=== PATIENT | male | born 1940 | race Caucasian/White ===

== ENCOUNTER → 2016-09-08 | Outpatient (CLI) | payer MEDICARE, OTHER ==
[~2016-09-08] VITALS: Ht 165.1 cm; Wt 82.8 kg
[~2016-09-08] MED LIST: /ADVA50050 IN; /TAMS4CA OR; /TIOT18INH INH; ALEVE PO; ALLO300T OR; ASPI1TAB PO; ASPI325T OR; ASPI81TA85 PO; BIMA01SOL OU; CEFD1CAP8 PO; CENTRUM SILVER PO; COMBAER6 INH; COMBVENT INH; CONDROITIN PO; FERR325T3 PO; FIBE625T PO; FIBER CON PO; FISH120012 PO; FISH1400 PO; FLOM5CAP PO; GLUC500T3 OR; GLUC750T18 PO; GLUC750T22 PO; GLUCTAB6 PO; LIDOCAINE 2% INJ 100 MG/5 ML SDV (FOR ANES.) As Ordered ONE; LIPI10TA OR; LIPI10TA PO; LOCO0.1C TOP; MAGN250T3 PO; MELO15TA3 PO; MELO15TA4 PO; NASA1SPR; NASONEX; NS 1,000 ML IV SCH; OMEP20TA PO; OPTI400C PO; PROPOFOL 200 MG/20 ML VIAL As Ordered ONE; SPIR1CAP INH; SYMB16INH INH; TAMS0.4C2 PO; TYLE325T5 PO; VITMTA PO; ZYLO300T4 PO; [UNRECOGNIZED DRUG - OTHER] TOP
--- NOTE | 2016-09-08 07:43 | ROOR ---
Patient Name: Evan Villar Procedure Date: 09/08/2016 7:30 AM Date of : 1940 Age: 76 Room: [facility] Gender: Male Note Status: Finalized Procedure: Upper GI endoscopy Indications: Gastrointestinal bleeding of unknown origin Providers: Horace Osborne MD Referring MD: Jose F Kearney MD Requesting Provider: Medicines: Monitored Anesthesia Care Complications: No immediate complications. Procedure: Pre-Anesthesia Assessment: - The heart rate, respiratory rate, oxygen saturations, blood pressure, adequacy of pulmonary ventilation, and response to care were monitored throughout the procedure. The Endoscope was introduced through the mouth, and advanced to the second part of duodenum. The upper GI endoscopy was accomplished without difficulty. The patient tolerated the procedure well. Findings: The Z-line was variable and was found 39 cm from the incisors. A medium-sized hiatal hernia was present. No other significant abnormalities were identified in a careful examination of the stomach. The exam of the duodenum was otherwise normal. Impression: - Z-line variable, 39 cm from the incisors. - Medium-sized hiatal hernia. - No specimens collected. - The examination was otherwise normal. Recommendation: - Patient has a contact number available for emergencies. The signs and symptoms of potential delayed complications were discussed with the patient. Return to normal activities tomorrow. Written discharge instructions were provided to the patient. - High fiber diet. - Discharge patient to home. - Continue present medications. - Follow an antireflux regimen. - Return to referring physician. - The findings and recommendations were discussed with the patient's family. Horace Osborne MD Horace Osborne MD 09/08/2016 7:42:45 AM This report has been signed electronically. Number of Addenda: 0 Note Initiated On: 09/08/2016 7:30 AM Estimated Blood Loss: Estimated blood loss: none.
--- NOTE | 2016-09-08 08:10 | ROOR ---
Patient Name: Evan Villar Procedure Date: 09/08/2016 7:31 AM Date of : 1940 Age: 76 Room: [facility] Gender: Male Note Status: Finalized Procedure: Colonoscopy to Cecum + Cold Snare Polypectomy Indications: Rectal bleeding Providers: Horace Osborne MD Referring MD: Jose F Kearney MD Requesting Provider: Medicines: Monitored Anesthesia Care Complications: No immediate complications. Procedure: Pre-Anesthesia Assessment: - The heart rate, respiratory rate, oxygen saturations, blood pressure, adequacy of pulmonary ventilation, and response to care were monitored throughout the procedure. The Colonoscope was introduced through the anus and advanced to the cecum, identified by appendiceal orifice and ileocecal valve. The colonoscopy was performed without difficulty. The patient tolerated the procedure well. The quality of the bowel preparation was good. Findings: The perianal and digital rectal examinations were normal. Non-bleeding internal hemorrhoids were found during retroflexion. The hemorrhoids were small and Grade I (internal hemorrhoids that do not prolapse). Multiple small and large-mouthed diverticula were found in the recto-sigmoid colon, sigmoid colon and descending colon. A large polyp was found in the distal ascending colon. The polyp was sessile. The polyp was removed with a cold snare. Polyp resection was incomplete. The resected tissue was retrieved. The exam was otherwise without abnormality on direct and retroflexion views. Impression: - Non-bleeding internal hemorrhoids. - Diverticulosis in the recto-sigmoid colon, in the sigmoid colon and in the descending colon. - One large polyp in the distal ascending colon, removed with a cold snare. Incomplete resection. Resected tissue retrieved. - The examination was otherwise normal on direct and retroflexion views. - The exam was otherwise normal to the cecum. Recommendation: - Patient has a contact number available for emergencies. The signs and symptoms of potential delayed complications were discussed with the patient. Return to normal activities tomorrow. Written discharge instructions were provided to the patient. - High fiber diet. - Discharge patient to home. - Continue present medications. - Await pathology results. - Telephone GI clinic for pathology results in 1 week. - Repeat colonoscopy for surveillance based on pathology results. - Return to referring physician. - The findings and recommendations were discussed with the patient's family. Horace Osborne MD Horace Osborne MD 09/08/2016 8:09:29 AM This report has been signed electronically. Number of Addenda: 0 Note Initiated On: 09/08/2016 7:31 AM Estimated Blood Loss: Estimated blood loss: none.
[2016-09-08 08:30] VITALS: BP 152/91
== END | disposition home or self-care (01) ==
LOC: M OPP 06:34
PROVIDERS: ATTEND Internal Medicine Gastroenterology
DX: K62.5 Hemorrhage of anus and rectum (principal); D12.2 Benign neoplasm of ascending colon; K64.0 First degree hemorrhoids; K57.30 Diverticulosis of large intestine without perforation or abscess without bleeding; K22.8 Other specified diseases of esophagus; K44.9 Diaphragmatic hernia without obstruction or gangrene; I25.10 Atherosclerotic heart disease of native coronary artery without angina pectoris; I10 Essential (primary) hypertension; E78.5 Hyperlipidemia, unspecified; I73.9 Peripheral vascular disease, unspecified; Z87.19 Personal history of other diseases of the digestive system; Z86.010 Personal history of colon polyps; R12 Heartburn; D64.9 Anemia, unspecified; D45 Polycythemia vera; M19.90 Unspecified osteoarthritis, unspecified site; M54.9 Dorsalgia, unspecified; J44.9 Chronic obstructive pulmonary disease, unspecified; R06.83 Snoring; Z87.442 Personal history of urinary calculi; R06.02 Shortness of breath; N40.1 Benign prostatic hyperplasia with lower urinary tract symptoms; Z95.5 Presence of coronary angioplasty implant and graft; Z79.82 Long term (current) use of aspirin; Z79.899 Other long term (current) drug therapy; Z83.71 Family history of colonic polyps

== ENCOUNTER → 2016-09-09 | Outpatient (REF) | payer MEDICARE, OTHER ==
[~2016-09-09] MED LIST changes: -LIDOCAINE 2% INJ 100 MG/5 ML SDV (FOR ANES.) As Ordered ONE; -NS 1,000 ML IV SCH; -PROPOFOL 200 MG/20 ML VIAL As Ordered ONE
[2016-09-09 21:09] LABS: MEAN CORPUSCULAR HEMOGLOBIN 24.7 pg (27.0-33.0); MEAN CORPUSCULAR HGB CONC 30.1 g/dl (32.0-36.5); MEAN CORPUSCULAR VOLUME 82.3 fl (80.0-96.0); RED CELL DISTRIBUTION WIDTH 17.5 % (11.5-14.5); WHITE BLOOD COUNT 9.2 K/mm3 (4.0-10.0)
[2016-09-09 21:37] LABS: ALBUMIN 3.5 GM/DL (3.2-5.2); BILIRUBIN,TOTAL 0.6 MG/DL (0.2-1.0); CALCIUM LEVEL 9.4 MG/DL (8.8-10.2); CREATININE FOR GFR 1.3 MG/DL (0.70-1.30); POTASSIUM SERUM 4.3 MEQ/L (3.5-5.1)
== END ==
LOC: M SFHCPLAZ 13:55
PROVIDERS: ATTEND Internal Medicine
DX: D50.9 Iron deficiency anemia, unspecified (principal); J44.9 Chronic obstructive pulmonary disease, unspecified

== ENCOUNTER 2016-10-17 18:18 | Inpatient (IN) | payer MEDICARE, OTHER ==
[~2016-10-17] VITALS: Ht 165.1 cm; Wt 91.0 kg
[2016-10-17] MEDS ORDERED: PRIL20CA9 PO (18:50)
[2016-10-17] MEDS ORDERED: LOCO0.1C EX (18:50)
[2016-10-17] MEDS ORDERED: SYMB16INH INH (18:50)
[2016-10-17] MEDS ORDERED: MORPHINE 4 MG/ML 1ML SYRINGE IV ONE ×2 (20:00→23:00)
[2016-10-17 20:11] LABS: CALCIUM LEVEL 8.7 MG/DL (8.8-10.2); CREATININE FOR GFR 1.46 MG/DL (0.70-1.30); GLOMERULAR FILTRATION RATE 49.8 (>42); POTASSIUM SERUM 4.6 MEQ/L (3.5-5.1)
[2016-10-17] MEDS ORDERED: NS 1,000 ML IV SCH (20:15)
[2016-10-17 20:16] LABS: BASO % 0.4 % (0.0-1.0); EOS % 0.5 % (0.0-3.0); LARGE UNSTAINED CELL # 0.1 K/mm3 (0.0-0.4); LARGE UNSTAINED CELL % 1.1 % (0.0-4.0); LYMPH # 0.5 K/mm3 (1.5-4.5); LYMPH % 6.2 % (24.0-44.0); MEAN CORPUSCULAR HEMOGLOBIN 26.4 pg (27.0-33.0); MEAN CORPUSCULAR HGB CONC 30.8 g/dl (32.0-36.5); MEAN CORPUSCULAR VOLUME 85.7 fl (80.0-96.0); MONO # 0.4 K/mm3 (0.0-0.8); MONO % 4.5 % (0.0-5.0); NEUTROPHILS # 7.5 K/mm3 (1.8-7.7); NEUTROPHILS % 87.4 % (36.0-66.0); PLATELET COUNT, AUTOMATED 200 k/mm3 (150-450); RED CELL DISTRIBUTION WIDTH 18.1 % (11.5-14.5); WHITE BLOOD COUNT 8.6 K/mm3 (4.0-10.0)
[2016-10-17] MEDS ORDERED: PERCOCET 5MG/325MG TAB PO ONE (21:00)
--- NOTE | 2016-10-17 21:20 | REPUSA ---
CT of the abdomen and pelvis without contrast Clinical statement: hematuria. Technique: Multiple axial CT images were obtained from the base of the lungs to the floor of the pelv is utilizing 5 mm axial slices without administration of contrast. Coronal and sagittal reconstructio ns were also obtained. Comparison: 04/13/2016. Findings: Chest: The visualized lung bases are clear here. Mild emphysematous changes are seen in the right low er lobe. Abdomen: The kidneys are normal in size bilaterally. There is a simple cyst in the inferior posterior left kidney measuring 2.3 x 2.3 cm. Mild Left-sided hydronephrosis is noted, with at least two kidn ey stones in the left renal pelvis measuring up to 5 mm. Tiny nonobstructing stones are seen in the r ight renal collecting system. A tiny 2 mm gallstone is noted. No pericholecystic inflammatory changes are seen. The liver, spleen, pancreas, and adrenal glands are unremarkable. IVC filter is in place. Diffuse atherosclerotic calcifications are seen in the aorta. The aorta demonstrates an infrarenal an eurysm measuring 3.1 x 3.4 cm. There is no abdominal lymphadenopathy or ascites. Pelvis: The bowel is unremarkable, with no obstructive or inflammatory changes. Extensive sigmoid div erticulosis is noted, without evidence of diverticulitis. The urinary bladder is within normal limits . There is no pelvic lymphadenopathy or ascites. The prostate is enlarged, measuring 4.8 x 4.9 cm. Bones: There are no suspicious osseous abnormalities seen. Moderately severe multilevel degenerative disc disease is seen from L1 through L5. Impression: 1. Mild left-sided hydronephrosis with several stones in the left renal pelvis measuring up to 5 mm i n diameter These are not significantly changed since the prior study. Nonobstructing right renal neph rolithiasis is also noted.Simple left renal cyst. 2. Cholelithiasis, without evidence of acute cholecystitis. 3. Infrarenal abdominal aortic aneurysm measuring up to 3.4 cm. Diffuse atherosclerotic changes. 4. No obstructive or inflammatory bowel changes. Severe diffuse sigmoid diverticulosis. 5. Enlarged prostate. 6. Moderate lumbar spondylosis.
[2016-10-17] MEDS ORDERED: cefTRIAXone SOD 1 GM in D5W MINI-BAG PLUS 50 ML IV ONE (23:45)
[2016-10-18] MEDS ORDERED: ACETAMINOPHEN TAB 650MG DOSE (2X325MG) PO PRN (00:15)
[2016-10-18] MEDS ORDERED: ONDANSETRON 4MG/2ML VIAL (J2405) IV PRN (00:15)
[2016-10-18] MEDS ORDERED: GLUC1CAP9 PO (00:17)
[2016-10-18] MEDS ORDERED: FISH100049 PO (00:17)
[2016-10-18] MEDS ORDERED: MAGN1TAB25 PO (00:19)
[2016-10-18] MEDS ORDERED: OMEP40CA2 PO (00:19)
[2016-10-18] MEDS ORDERED: ONDANSETRON 4MG/2ML VIAL (J2405) IV ONE (00:45)
[2016-10-18] MEDS ORDERED: MORPHINE 2 MG/ML 1ML SYRINGE IV ONE (01:00)
[2016-10-18] MEDS: NS 1,000 ML IV SCH ×2 (01:04→10:04)
[2016-10-18] MEDS ORDERED: IPRATROPIUM 0.5MG/ALBUTEROL 2.5MG INH SOL UD 3ML (DUONEB)(J7620) NEB PRN (01:15)
[2016-10-18 01:45] VITALS: BP 170/89
[2016-10-18] MEDS: TAMSULOSIN 0.4 MG CAP PO SCH ×2 (01:54→21:32)
[2016-10-18] MEDS: OMEGA-3 1050MG CAPSULE PO SCH ×2 (01:55→21:32)
[2016-10-18] MEDS: ATORVASTATIN 10 MG TAB PO SCH ×2 (01:55→21:32)
[2016-10-18] MEDS: MORPHINE 2 MG/ML 1ML SYRINGE IV PRN ×2 (04:32→11:09)
[2016-10-18 05:54] LABS: CALCIUM LEVEL 8.6 MG/DL (8.8-10.2); CREATININE FOR GFR 1.31 MG/DL (0.70-1.30); GLOMERULAR FILTRATION RATE 56.5 (>42); POTASSIUM SERUM 4.8 MEQ/L (3.5-5.1)
[2016-10-18 06:00] VITALS: BP 169/79
[2016-10-18 06:15] VITALS: BP 132/64
[2016-10-18] MEDS ORDERED: amLODIPine 5 MG TAB PO ONE (06:15)
[2016-10-18 06:50] VITALS: BP 128/50
[2016-10-18] MEDS: SYMBICORT 160/4.5MCG INHALER 6GM INH SCH ×2 (08:03→19:30)
[2016-10-18] MEDS: TIOTROPIUM INHALER/CAPSULE (SPIRIVA) INH SCH (08:03)
--- NOTE | 2016-10-18 08:11 | HPE ---
DATE OF ADMISSION: 10/18/2016 PRIMARY CARE PROVIDER: Dr. Jose F Kearney. INPATIENT HOSPITALIST ATTENDING: Dr. Darron Rich. CHIEF COMPLAINT: Back pain. 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 Osborne. He presents to the emergency room with acute onset of bilateral lower back pain. While the patient was walking up three steps at home, he suddenly had severe sharp pain, bilateral lower back radiating down to his thigh. He has been experiencing some urgency with no frequency. No dysuria. No fever or chills. He noted some hematuria today. Describes it as had prior kidney stones. No changes in appetite, weight gain, weight loss, chest pain or pressure, tightness, palpitations, lightheadedness, near syncope. Denies any nausea, vomiting, diarrhea or constipations. The patient felt nauseated on arrival to the emergency room, however. He had taken one hydrocodone from previous admissions with no relief prompting him to present to the emergency room. No difficulty with walking. No weakness of the lower extremities. Hospitalist service was called for admission when the patient was found to have hematuria, left-sided hydronephrosis on CT with nonobstructing kidney stone and per urology , recommendations were to start an IV of ceftriaxone. PAST MEDICAL HISTORY: Diverticular bleed. Chronic left hydronephrosis with recurrent kidney stones. History of pulmonary embolus, deep venous thrombosis. IVC filter. History of COPD. Chronic back pain. Glaucoma. Right lower extremity vascular bypass surgery. Retinal detachment. Cataracts. PAST SURGICAL HISTORY: [place] filter Arterioplasty right leg. Appendectomy. Umbilical hernia repair. Multiple colonoscopies and endoscopies. HOME MEDICATIONS: - Combivent two puffs four times daily - allopurinol 300 mg daily - aspirin 81 mg nightly - Lipitor 10 mg nightly - Lumigan one drop every evening - Symbicort two puffs twice a day - Fibracol 625 daily - ferrous sulfate 325 mg three times weekly - fish oil one capsule nightly - glucosamine chondroitan one tablet twice a day - hydrocortisone butyrate one dose topically - magnesium oxide 250 nightly -meloxicam 15 mg daily - Nasacort two sprays daily -omeprazole 40 mg daily - Flomax 0.4 nightly - Spiriva inhaled daily The patient had taken hydrocodone acetaminophen 5/500 from previous prescription. SOCIAL HISTORY: Smoker greater than 40 years, quit many months ago. A few drinks on a weekly basis. Drinks a mixed drink and wine. No recreational drug use. The patient is retired. REVIEW OF SYSTEMS: 12-point system negative aside from positive findings in the history of present illness. PHYSICAL EXAMINATION: VITAL SIGNS: Temperature 97.5, pulse 85, respiratory rate 20, blood pressure 140/85, 96% on room air. GENERAL: The patient is awake, alert, oriented times three answering questions appropriately. No facial asymmetry, jaundice or icterus. HEENT: Pupils are round reactive to light and accommodation. Extraocular muscles intact. Moist mucous membranes. cervical lymphadenopathy, thyromegaly or jugular venous distentions. LUNGS: Lungs are clear to auscultation. No wheezing rales or rhonchi. HEART: S1, S2, sinus rhythm. No murmurs, rubs or gallops. ABDOMEN: Obese, soft, nontender, nondistended. Positive bowel sounds times four quadrants. The patient has an obese abdomen. Positive CVA tenderness on the left. EXTREMITIES: No pitting edema, cyanosis. SKIN: [place] color and warm to touch. NEURO: Negative straight-leg raise testing. No weakness. Motor function is 5/5 times four extremities. Gait was not tested. White count 8.6, hemoglobin 15, hematocrit 49, platelet count 200, 87% neutrophils. Sodium 140, potassium 4.6, chloride 107, bicarbonate 27, BUN 24, creatinine 1.46, glucose 170, calcium 8.7. Baseline creatinine is 0.86 to 1.30. Microbiology: Blood culture obtained pending. Urine culture pending. Urinalysis: Turbid appearance, 2+ protein, trace ketones, negative nitrates, 1+ leukocyte esterase, too numerous to count WBC, negative bacteria. CT abdomen and pelvis: Visualized lung bases are clear. Mild emphysema in the right lobe. Simple cyst inferior posterior left kidney measuring 2.3 x 2.3 cm. Mild left hydronephrosis. At least two kidney stones, left renal pelvis measuring up to 5 mm. Tiny nonobstructing stones in the right renal collecting system. Tiny 2 mm gallstone. No pericholecystic inflammatory changes. Liver, spleen, pancreas and adrenals are unremarkable. IVC filter is in place. Diffuse atherosclerotic calcifications in the aorta. Aorta demonstrates infrarenal aneurysm measuring 3.1 x 3.4 cm. No abdominal lymphadenopathy or ascites. The pelvis is unremarkable. No obstructive or inflammatory changes. Extensive sigmoid diverticulosis is noted without evidence of diverticulitis. Urinary bladder is within normal limits. No pelvic lymphadenopathy or ascites. Prostate is enlarged measuring 4.8 x 4.9 cm. No suspicious osseous abnormalities. Moderately severe degenerative disc disease from L1 to L5. ASSESSMENT/PLAN: This is a 76-year-old male, previous smoker with a 3.4 cm infrarenal abdominal aortic aneurysm, mild left-sided hydronephrosis with chronic recurrent kidney stones, diverticular bleed, pulmonary embolism, deep venous thrombosis. IVC filter, COPD, popliteal aneurysm of the right knee retinal detachment, cataracts, appendectomy, umbilical hernia repair, multiple colonoscopies and endoscopies, arterioplasty of the right leg who presents to the emergency room with acute onset of bilateral lower quadrant back pain. He was found to have nonobstructing kidney stones, left hydronephrosis, hematuria with abnormal urinalysis. The patient has severe degenerative disc disease of the lumbar spine noted on CT with negative sciatica. The patient will be admitted as an inpatient for the following issues: 1. Left hydronephrosis with acute kidney injury. No obstructive stone at this time. Urology has been consulted. The patient will be given intravenous fluids, pain medications. Hold anticoagulation such as aspirin. Deep venous thrombosis prophylaxis with compression stockings. IV ceftriaxone for now. Await urine culture and tailor antibiotics according. Avoid nephrotoxins. Renally dose all medications and trial of IV fluids. Continue with allopurinol for history of gout. Avoid NSAIDs. 2. Lumbar disc disease secondary to degenerative disc most likely from osteoarthritis. Percocet as needed. IV morphine. Bowel regimen with Senokot. 3. History of benign prostatic hypertrophy: Continue on Flomax. 4. History of chronic obstructive pulmonary disease: Prior history of 40 years of smoking. Continue on Symbicort, Spiriva. Nebulizers as needed. No active wheezing. 5. Reflux disease: Continue on Prilosec. 6. Deep venous thrombosis prophylaxis: The patient has an IVC filter with gross hematuria, therefore, will provide compression stockings. The patient will be assigned to Dr. Darron Rich at 7:00 a.m. on 10/18/2016. [facility]ITAL[facility]
[2016-10-18] MEDS: cefTRIAXone SOD 2 GM in D5W MINI-BAG PLUS 50 ML IV SCH (09:00)
[2016-10-18] MEDS: OMEPRAZOLE 20 MG CAP PO SCH (09:00)
[2016-10-18] MEDS: SENOKOT S TAB PO SCH ×2 (09:00→21:32)
[2016-10-18] MEDS: ALLOPURINOL 300 MG TAB PO SCH (09:00)
[2016-10-18] MEDS ORDERED: TAMSULOSIN 0.4 MG CAP PO ONE (11:45)
[2016-10-18 14:00] VITALS: BP 137/78
[2016-10-18] MEDS: PERCOCET 5MG/325MG TAB PO PRN (18:26)
[2016-10-18 22:00] VITALS: BP 139/84
[2016-10-19] MEDS: PERCOCET 5MG/325MG TAB PO PRN ×2 (05:58→22:21)
[2016-10-19 06:00] VITALS: BP 126/84
[2016-10-19 06:22] LABS: BASO % 0.4 % (0.0-1.0); EOS # 0.3 K/mm3 (0.0-0.50); EOS % 4.3 % (0.0-3.0); LARGE UNSTAINED CELL # 0.1 K/mm3 (0.0-0.4); LARGE UNSTAINED CELL % 1.8 % (0.0-4.0); LYMPH # 0.7 K/mm3 (1.5-4.5); LYMPH % 9.8 % (24.0-44.0); MEAN CORPUSCULAR HEMOGLOBIN 26.2 pg (27.0-33.0); MEAN CORPUSCULAR HGB CONC 30.3 g/dl (32.0-36.5); MEAN CORPUSCULAR VOLUME 86.4 fl (80.0-96.0); MONO # 0.6 K/mm3 (0.0-0.8); MONO % 7.8 % (0.0-5.0); NEUTROPHILS # 5.7 K/mm3 (1.8-7.7); NEUTROPHILS % 75.9 % (36.0-66.0); PLATELET COUNT, AUTOMATED 154 k/mm3 (150-450); RED CELL DISTRIBUTION WIDTH 18.3 % (11.5-14.5); WHITE BLOOD COUNT 7.5 K/mm3 (4.0-10.0)
[2016-10-19 06:48] LABS: ANION GAP 7 MEQ/L (8-16); BLOOD UREA NITROGEN 23 MG/DL (7-18); CALCIUM LEVEL 8.4 MG/DL (8.8-10.2); CARBON DIOXIDE LEVEL 26 MEQ/L (21-32); CHLORIDE LEVEL 107 MEQ/L (98-107); CREATININE FOR GFR 1.12 MG/DL (0.70-1.30); GLOMERULAR FILTRATION RATE > 60.0 (>42); GLUCOSE, FASTING 118 MG/DL (83-110); POTASSIUM SERUM 4.6 MEQ/L (3.5-5.1); SODIUM LEVEL 140 MEQ/L (136-145)
[2016-10-19] MEDS: TIOTROPIUM INHALER/CAPSULE (SPIRIVA) INH SCH (07:30)
[2016-10-19] MEDS: SYMBICORT 160/4.5MCG INHALER 6GM INH SCH ×2 (07:30→20:51)
--- NOTE | 2016-10-19 09:08 | CR ---
DATE OF CONSULTATION: 10/18/2016 ATTENDING PHYSICIAN: Dr. Joellen Schilling REQUESTED SERVICES: Urology, Dr. Hernandez PURPOSE OF CONSULT: 1. Mild left hydronephrosis associated with several renal pelvic stones. 2. Gross hematuria. 3. Urinary retention. HISTORY OF THE PRESENT ILLNESS: This is a very pleasant 76-year-old gentleman who presented to the emergency room last night after going up three stairs and developing sudden back pain that was bilateral low and extended down his legs. He also had reported that he had some hematuria earlier in the day. He has a known history of kidney stones. A CT urogram was performed, which showed mild left-sided hydronephrosis with several renal pelvic stones that were interpreted as nonobstructing. No other abnormality was noted on the CT. He was admitted for pain control that is assumed to be musculoskeletal and admitted to the floor. He is having difficulty sitting up, so he is now having difficulty urinating because he cannot sit up at the side of the bed because of the pain. He does have a history of prostate problems and has been on Flomax, but per the MAR, he did not receive it last night. He also had reported some gross hematuria and when they catheterized him for urine specimen, a few small clots were obtained as well. The patient does have a history of smoking but quit 4 years ago. He denies any history of bladder cancer. He does remember having a cystoscopic exam but many years ago. He does have a urologist in the [facility] who he says is following the stones. He had a CT scan done in April, which has very similar appearance as to the CT now. PAST MEDICAL HISTORY: Significant for: Diverticular bleed. Chronic mild left hydronephrosis with several left renal stones, unchanged from prior CT. History of pulmonary embolus and deep venous thrombosis. History of chronic obstructive pulmonary disease (COPD). History of chronic back pain. Glaucoma. Retinal detachment. Cataracts. PAST SURGICAL HISTORY: Includes: Inferior vena cava (IVC) filter. Left lower extremity vascular bypass surgery. ALLERGIES: No known drug allergies. MEDICATIONS: Are all listed on the chart. Flomax is one of his regular medications. SOCIAL HISTORY: He smoked for greater than 40 years but quit 4 years ago. He has a few drinks each week, mixed drinks and wine. No drug use. He is retired. FAMILY HISTORY: Noncontributory. There is no history of prostate cancer or bladder cancer. REVIEW OF SYSTEMS: Positive for the back pain extending down the legs and the urinary retention. It is also positive for hematuria. He denies any chest pain or shortness of breath, any hematochezia, hemoptysis, bloody emesis, headaches, seizures, stroke, numbness or weakness of extremities, nausea, vomiting, diarrhea or constipation, fever or chills. PHYSICAL EXAMINATION: He is a very pleasant 76-year-old gentleman who is well developed, well nourished. He is in no acute distress. He is alert and oriented. He is afebrile. Vital signs: Stable. HEENT: Normocephalic, atraumatic. Neck: Supple without adenopathy, thyromegaly. Cardiovascular: Regular rate and rhythm without rubs, gallops or murmurs. Lungs [place] are clear to auscultation bilaterally. Abdomen is protuberant but soft. No evidence of hepatosplenomegaly, palpable masses or costovertebral angle tenderness. Extremities show no clubbing, cyanosis or edema. LABORATORY: His white blood cell count is 8.6, hemoglobin is 15.1 and 49, platelets are 200, creatinine is 1.31. Urine is [place] color and turbid, 2+ protein, 3+ blood, 1+ leukocyte esterase. White blood cells and red blood cells are too numerous to count. No bacteria was seen. Both blood and urine cultures are pending. IMAGING: CT urogram of the abdomen and pelvis showed mild left-sided hydronephrosis with several nonobstructing renal pelvic stones measuring up to 5 mm in size that is unchanged from prior study. ASSESSMENT: 1. Left nonobstructing renal pelvic stones with mild hydronephrosis, unchanged from prior study. 2. Urinary retention and history of patient with BPH who missed his Flomax dose last night. 3. Gross hematuria. PLAN: Regarding the stones, I have viewed both the current CT and the prior CT, and they do appear to be unchanged. However, these stones could possibly be ball valving the UPJ. However, he does not describe symptoms consistent with that. He has a urologist who is aware of these stones. I just recommended that he followup with him and seek lithotripsy treatment if appropriate. With regarding the BPH, he did miss his Flomax, so I am going to give him an extra dose now and get him back on his regular dose this evening. I am just going to let them straight catheterize him for now as he is not in agony. I did recommend that he get up on the side of the bed and get into the most usual comfortable position to void, and will let them straight catheterize him as needed and place a Go[place] catheter if necessary. With regard to the hematuria, I do think he needs to followup with his primary urologist. He does have two obvious reasons for some gross hematuria, number one being his prostate and number two being the stones. However, we would not want to miss a bladder cancer, and he does have a history of smoking, so he at least deserves a hematuria workup, including a cystoscopic exam as an outpatient. I did recommend the family take this note with them and get copies of the CTs, so that his primary urologist can review those and make appropriate recommendations. I will followup with him again tomorrow, and thank you very much for this kind consult.
[2016-10-19] MEDS: SENOKOT S TAB PO SCH ×2 (09:57→20:46)
[2016-10-19] MEDS: OMEPRAZOLE 20 MG CAP PO SCH (09:57)
[2016-10-19] MEDS: ALLOPURINOL 300 MG TAB PO SCH (09:57)
[2016-10-19] MEDS: cefTRIAXone SOD 2 GM in D5W MINI-BAG PLUS 50 ML IV SCH (09:57)
[2016-10-19] MEDS ORDERED: FUROSEMIDE 40 MG/4 ML VIAL (J1940) IV ONE (10:00)
--- NOTE | 2016-10-19 11:25 | IPNPDOC ---
Assessment/Plan Date Seen The patient was seen on 10/19/16. Patient Summary pt with mild (unchanged) left hydro with several non-obstructing stones. also gross hematuria and aur with freedman in place. urine is clear today with some old debrie. still no left flank pain. will cont freedman today and d/c in am for void trial and he will f/u with his [facility] urologist after d/c. Problems (1) UTI (urinary tract infection) Status: Acute Response to Treatment: Stable Discussed With: Patient (2) BPH (benign prostatic hyperplasia) Status: Chronic Response to Treatment: Stable Discussed With: Patient (3) Hydronephrosis, left Status: Acute Response to Treatment: Stable Discussed With: Patient (4) Hematuria Status: Acute Response to Treatment: Improving Discussed With: Patient Plan/VTE VTE Prophylaxis Ordered?: Yes Plan/Urinary Catheter Reason for insertion/continuin: Acute obstruct/retention Plan void trail in am f/u with primary urologist after d/c on stones, gross hematuria and bph Subjective Review oF Systems Chief Complaint The patient is a 76-year-old male admitted with a reason for visit of Hydronephrosis. Events since Last Encounter pt with mild (unchanged) left hydro with several non-obstructing stones. also gross hematuria and aur with freedman in place. urine is clear today with some old debrie. still no left flank pain. will cont freedman today and d/c in am for void trial and he will f/u with his [facility] urologist after d/c. General: Reports: Normal Appetite, Denies: Fatigue, Malaise Constitutional: Reports: Weakness Pulmonary: Denies: Dyspnea, Cough Cardiovascular: Denies Chest Pain, Denies Palpitations Gastrointestinal: Denies: Nausea, Vomiting, Abdominal Pain Musculoskeletal: Reports: Back Pain Objective Physical Examination General Exam: Alert, Cooperative, No Acute Distress Male Exam: Normal Genital Exam Extremity Exam: Edema (bilateral thighs.) Vital Signs/I&O Vital Signs Date Time Temp Pulse Resp B/P (MAP) Pulse Ox O2 Delivery O2 Flow Rate FiO2 10/19/16 06:30 18 10/19/16 06:01 Room Air 10/19/16 06:00 97.3 98 126/84 (98) 92 I&O- Last 24 Hours up to 6 AM 10/19/16 06:00 Intake Total 2450 ml Output Total 1000 ml Balance 1450 ml Laboratory Data Labs 24H Laboratory Tests 2 10/19/16 05:12: White Blood Count 7.5, Red Blood Count 5.23, Hemoglobin 13.7L, Hematocrit 45.2, Mean Corpuscular Volume 86.4, Mean Corpuscular Hemoglobin 26.2L, Mean Corpuscular Hemoglobin Concent 30.3L, Red Cell Distribution Width 18.3H, Platelet Count 154, Neutrophils (%) (Auto) 75.9H, Lymphocytes (%) (Auto) 9.8L, Monocytes (%) (Auto) 7.8H, Eosinophils (%) (Auto) 4.3H, Basophils (%) (Auto) 0.4 , Neutrophils # (Auto) 5.7, Lymphocytes # (Auto) 0.7L, Monocytes # (Auto) 0.6, Eosinophils # (Auto) 0.3, Basophils # (Auto) 0.0, Large Unclassified Cells % 1.8 , Large Unclassified Cells # 0.1, Anion Gap 7L, Glomerular Filtration Rate > 60.0, Blood Urea Nitrogen 23H, Creatinine 1.12, Sodium Level 140, Potassium Level 4.6, Chloride Level 107, Carbon Dioxide Level 26, Calcium Level 8.4L CBC/BMP Laboratory Tests 10/19/16 05:12 Red Blood Count 5.23, Mean Corpuscular Volume 86.4, Mean Corpuscular Hemoglobin 26.2 L, Mean Corpuscular Hemoglobin Concent 30.3 L, Red Cell Distribution Width 18.3 H, Neutrophils (%) (Auto) 75.9 H, Lymphocytes (%) (Auto) 9.8 L, Monocytes ( %) (Auto) 7.8 H, Eosinophils (%) (Auto) 4.3 H, Basophils (%) (Auto) 0.4, Neutrophils # (Auto) 5.7, Lymphocytes # (Auto) 0.7 L, Monocytes # (Auto) 0.6, Eosinophils # (Auto) 0.3, Basophils # (Auto) 0.0, Calcium Level 8.4 L Microbiology Microbiology 10/18/16 Blood Culture - Preliminary, Resulted No growth after 24 hours . All specim... 10/17/16 Urine Culture - Final, Complete KENNETH FIERRO MD October 19, 2016 11:25
--- NOTE | 2016-10-19 13:14 | REP ---
Clinical: Pain and swelling . Technique: Milan scale and color Doppler evaluation using linear high frequency transducer. Findings: Ultrasound examination of the right and left lower extremity deep venous structures from the common femoral vein to the popliteal vein demonstrates diffuse bilateral thrombus from the common femoral veins through the popliteal veins and trifurcation. Impression: Positive examination. Diffuse bilateral thrombus extending from the bilateral common femoral veins to the bilateral popliteal veins and trifurcation. Signed by Arash Cruz MD 10/19/2016 01:07 P
[2016-10-19 14:00] VITALS: BP 137/87
[2016-10-19] MEDS: APIXABAN 5 MG TAB (ELIQUIS) PO SCH ×2 (14:46→20:46)
--- NOTE | 2016-10-19 15:56 | IPNPDOC ---
Text Note Date of Service The patient was seen on 10/19/16. NOTE Subjective: C/o swelling in BLE. No hematuria today. Has freedman since yesterday. Back pain stable. Objective: Vitals: (see below) General: No acute distress, laying comfortably in bed. HEENT: Moist mucous membranes. Neck: No JVD or lymphadenopathy Cardiac: RRR, No murmurs Pulm: Clear to auscultation b/l. No wheezing, rhonchi Abd: NT/ND + BS. Obese Ext: 1+ Pitting edema BLE. No cyanosis. Distal pulses intact. Strength 5/5 BLE. sensation intact. Labs (see below) Images: Assessment/Plan 1. L hydronephrosis with BRENNA/hematuria - Appreciate Urology input. On Abx for UTI. Avoid nephrotoxins. Freedman in place. Voiding trial tomorrow. Hematuria resolved. 2. BPH on Flomax 3. H/o COPD on nebs 4. GERD on PPI 5. H/o RLE DVT s/p 6m anticoagulation. has IVC. Now with extensive BLE DVTs. Discussed risks (bleeding) and benefits of anticoagulation with patient who wishes to be on Eliquis - this has been ordered. 6. Chronic back pain - MRI Lumbar spine pending - MRI is done until tomorrow. No alarming symptoms/signs. DVT prophy: Eliquis. VS,Fishbone, I+O VS, Fishbone, I+O Laboratory Tests 10/19/16 05:12 Red Blood Count 5.23, Mean Corpuscular Volume 86.4, Mean Corpuscular Hemoglobin 26.2 L, Mean Corpuscular Hemoglobin Concent 30.3 L, Red Cell Distribution Width 18.3 H, Neutrophils (%) (Auto) 75.9 H, Lymphocytes (%) (Auto) 9.8 L, Monocytes ( %) (Auto) 7.8 H, Eosinophils (%) (Auto) 4.3 H, Basophils (%) (Auto) 0.4, Neutrophils # (Auto) 5.7, Lymphocytes # (Auto) 0.7 L, Monocytes # (Auto) 0.6, Eosinophils # (Auto) 0.3, Basophils # (Auto) 0.0, Calcium Level 8.4 L Vital Signs Date Time Temp Pulse Resp B/P (MAP) Pulse Ox O2 Delivery O2 Flow Rate FiO2 10/19/16 14:00 97.4 119 16 137/87 (104) 10/19/16 07:20 Room Air 10/19/16 06:00 92 I&O- Last 24 Hours up to 6 AM 10/19/16 05:59 Intake Total 2570 ml Output Total 600 ml Balance 1970 ml CRISTINA AMIN MD October 19, 2016 15:55
[2016-10-19] MEDS ORDERED: FUROSEMIDE 40 MG/4 ML VIAL (J1940) IV SCH (17:00)
[2016-10-19] MEDS: ATORVASTATIN 10 MG TAB PO SCH (20:46)
[2016-10-19] MEDS: TAMSULOSIN 0.4 MG CAP PO SCH (20:46)
[2016-10-19] MEDS: OMEGA-3 1050MG CAPSULE PO SCH (20:46)
[2016-10-19 22:00] VITALS: BP 141/87
[2016-10-20 06:00] VITALS: BP 143/86
[2016-10-20 06:27] LABS: BASO % 0.3 % (0.0-1.0); EOS # 0.1 K/mm3 (0.0-0.50); EOS % 1.1 % (0.0-3.0); LARGE UNSTAINED CELL # 0.2 K/mm3 (0.0-0.4); LARGE UNSTAINED CELL % 1.9 % (0.0-4.0); LYMPH # 0.6 K/mm3 (1.5-4.5); LYMPH % 6.7 % (24.0-44.0); MEAN CORPUSCULAR HEMOGLOBIN 26.5 pg (27.0-33.0); MEAN CORPUSCULAR HGB CONC 31.6 g/dl (32.0-36.5); MEAN CORPUSCULAR VOLUME 83.6 fl (80.0-96.0); MONO # 0.8 K/mm3 (0.0-0.8); MONO % 8.6 % (0.0-5.0); NEUTROPHILS # 7.6 K/mm3 (1.8-7.7); NEUTROPHILS % 81.5 % (36.0-66.0); PLATELET COUNT, AUTOMATED 147 k/mm3 (150-450); RED CELL DISTRIBUTION WIDTH 18.3 % (11.5-14.5); WHITE BLOOD COUNT 9.3 K/mm3 (4.0-10.0)
[2016-10-20 06:38] LABS: CALCIUM LEVEL 9.3 MG/DL (8.8-10.2); CREATININE FOR GFR 1.38 MG/DL (0.70-1.30); GLOMERULAR FILTRATION RATE 53.2 (>42); POTASSIUM SERUM 4.2 MEQ/L (3.5-5.1)
[2016-10-20] MEDS: SYMBICORT 160/4.5MCG INHALER 6GM INH SCH ×2 (07:33→20:39)
[2016-10-20] MEDS: TIOTROPIUM INHALER/CAPSULE (SPIRIVA) INH SCH (07:33)
[2016-10-20] MEDS: MOM 30ML SUSPENSION UDC PO PRN (09:38)
[2016-10-20] MEDS: APIXABAN 5 MG TAB (ELIQUIS) PO SCH ×2 (09:39→21:06)
[2016-10-20] MEDS: ALLOPURINOL 300 MG TAB PO SCH (09:39)
[2016-10-20] MEDS: OMEPRAZOLE 20 MG CAP PO SCH (09:39)
[2016-10-20] MEDS: PERCOCET 5MG/325MG TAB PO PRN ×3 (09:40→21:10)
[2016-10-20] MEDS: cefTRIAXone SOD 2 GM in D5W MINI-BAG PLUS 50 ML IV SCH (09:40)
[2016-10-20] MEDS: SENOKOT S TAB PO SCH ×2 (09:40→21:06)
--- NOTE | 2016-10-20 10:59 | IPN ---
DATE OF ENCOUNTER: 10/20/2016 SUBJECTIVE: The patient was seen this morning at bedside. No acute overnight events. He reports that he started to have lower extremity swelling and found to have bilateral deep venous thromboses (DVTs). He denies any leg pain. No fevers or chills. He does appear to have gross hematuria this morning. Continues to have Goins in place. No flank pain. States that his back pain is still there but is not as bad as it was on presentation. No nausea or vomiting, abdominal pain. The patient is eating well. He has not had a bowel movement yet. No chest pain/pressure, palpitations or shortness of breath. OBJECTIVE: Vital signs: Temperature 98.4, pulse 109, respiratory rate 18, blood pressure 143/86, 86, pulse oximetry 92% on room air. General: The patient is alert and oriented, in no acute distress. HEENT: Normocephalic, atraumatic. Extraocular muscles are intact. Moist mucosa. Neck: Supple. No cervical lymphadenopathy. Heart: Normal S1, S2, tachycardiac, regular rhythm. I could not appreciate a murmur. Lungs: Clear to auscultation bilaterally. Abdomen: Obese, nontender. Bowel sounds are present. No rebound, guarding or rigidity. Extremities: Positive for bilateral edema. No cyanosis. Positive pedal pulses bilaterally. Skin: Warm and dry. No rashes noted. Neurologic: No focal deficits. Motor and sensation intact. LABORATORY DATA: WBC 9.3, hemoglobin 14.2, hematocrit 44.8, platelet count 147. Sodium 139, potassium 4.2, chloride 105, carbon dioxide 25, anion gap 9, BUN 27, creatinine 1.38, GFR 53.2, fasting glucose 136, calcium 9.3. MICROBIOLOGY: Urine culture showed no growth. Blood culture shows no growth after 48 hours. IMAGING: The patient had a vascular ultrasound on 10/19/2016, which revealed diffuse bilateral thrombus extending from the bilateral common femoral vein to the bilateral popliteal veins and trifurcation. ASSESSMENT AND PLAN: 1. Left hydronephrosis with acute kidney injury and gross hematuria. Urology is currently following. Goins remains in place. Will defer to urology for voiding trial. He remains on ceftriaxone. Urine culture did not show any growth. Continue with Eliquis and monitor hematuria. Continuous irrigations. 2. Bilateral deep venous thrombosis. He received a dose of Lasix yesterday, currently on Eliquis 10 mg twice daily. He does have history of a previous DVT maybe 10 years ago for which he also received an inferior vena cava (IVC) filter. 3. Tachycardia. EKG revealed sinus tachycardia. No acute ST-T wave changes. Will monitor for now. 4. Back pain. MRI unable to be done. CT revealed severe central canal stenosis at L4-L5. Neurosurgery consulted. 5. Benign prostatic hypertrophy. The patient is on Flomax 0.4 mg daily. 6. History of chronic obstructive pulmonary disease (COPD). Continue Symbicort , Spiriva and DuoNebs as needed. 7. Gastroesophageal reflux disease (GERD). Continue with Prilosec daily. 8. History of gout. Continue allopurinol daily. 9. Dyslipidemia. Continue with Lipitor. 10. Deep venous thrombosis prophylaxis. The patient is currently on Eliquis. My preceptor for this patient encounter was Darron Rich MD. The preceptor was physically present in the building during the encounter and was fully available. As needed, all aspects of the patient interview, examination, medical decision making process, and medical care plan development were reviewed and approved by the preceptor. The preceptor is aware and concurs with the plan as stated in the body of this note and will attest to such by his/her co-signature. JOSEP
--- NOTE | 2016-10-20 12:59 | REP ---
CT LUMBAR SPINE WITHOUT CONTRAST: HISTORY: Back pain. A diffuse disc bulge is present at the L1-2 level. There is minimal compression of the thecal sac. The L1 there is exit the neural foramina without compression . A diffuse disc bulge with associated osteophyte formation is present at the L2-3 level. There is hypertrophy of the ligamenta flava and posterior articulating facets. These findings produce mild central canal stenosis. The L2 nerve exit the neural foramina without compression. A diffuse disc bulge is present at the L3-4 level. There is hypertrophy of the ligamenta flava and posterior articulating facets. These findings produce moderate central canal stenosis. There is compression of the L3 nerves in the neural foramina. A diffuse disc bulge is present at the L4-5 level. There is hypertrophy of the ligamenta flava and posterior articulating facets. There are 3 mm of grade 1 spondylolisthesis of L4 on 5. These findings produce severe central canal stenosis. The L4 nerves exit the neural foramina without compression. A diffuse disc bulge and small right paracentral disc protrusion are present at the L5-S1 level. There is minimal compression of the thecal sac and right S1 nerve as it exits the thecal sac. There is hypertrophy of the posterior articulating facets. The L5 nerves exit the neural foramina without compression. The L1-2 through L4-5 intervertebral discs are decreased in height. Vacuum phenomenon is present. These findings are consistent with disc degeneration. There is aneurysmal dilatation of the abdominal aorta measuring 3.8 cm. IMPRESSION: 1. Diffuse disc bulge at the L1-2 level with minimal thecal sac compression. 2. Mild central canal stenosis at the L2-3 level secondary to disc bulge, ligamentous, and facet hypertrophy, and osteophyte formation. 3. Moderate central canal stenosis at the L3-4 level secondary to disc bulge, ligamentous, and facet hypertrophy. There is compression of the L3 nerves in the neural foramina. 4. Severe central canal stenosis at the L4-5 level secondary to disc bulge, ligamentous, and facet hypertrophy and grade 1 spondylolisthesis. There is compression of the L4 nerves in the neural foramina. 5. Diffuse disc bulge and small right paracentral disc protrusion at the L5-S1 level with minimal compression of the thecal sac and right S1 nerve as it exits the thecal sac. 6. There is aneurysmal diltation of the abdominal aorta meauring 3.8 cm. Ultrasound may be helpful for further evaluation. Signed by Vick Barreto MD 10/20/2016 01:02 P
--- NOTE | 2016-10-20 13:48 | ECGEPIP ---
Stationary ECG Study [facility] Test Date: 2016-10-20 Pat Name: DEVYN ONTIVEROS Department: Room: [place] [address] Gender: M Edi Manager: RAFAEL : [id number] Requested By: CRISTINA AMIN Order Number: [id number] Reading MD: Scott Rice Measurements Intervals Ramer Rate: 127 P: 47 WA: 173 QRS: 91 QRSD: 90 T: 49 QT: 318 QTc: 464 Interpretive Statements Sinus tachycardia Low voltages with rightward axis, slow precordial R-wave progression, persistent S waves V5 and V6, And small inferior Q waves; body habitus versus pulmonary disease. Could not rule out prior septal/inferior injuries Faster rate but otherwise unchanged from 04/13/16. Electronically Signed On 10-20-2016 13:48:46 EDT by Scott Rice
[2016-10-20 14:00] VITALS: BP 127/80
[2016-10-20] MEDS: ATORVASTATIN 10 MG TAB PO SCH (21:06)
[2016-10-20] MEDS: TAMSULOSIN 0.4 MG CAP PO SCH (21:06)
[2016-10-20] MEDS: OMEGA-3 1050MG CAPSULE PO SCH (21:06)
[2016-10-20 22:00] VITALS: BP 139/78
[2016-10-21 06:00] VITALS: BP 116/64
[2016-10-21 06:47] LABS: BASO % 0.5 % (0.0-1.0); EOS # 0.2 K/mm3 (0.0-0.50); EOS % 2.2 % (0.0-3.0); LARGE UNSTAINED CELL # 0.1 K/mm3 (0.0-0.4); LARGE UNSTAINED CELL % 1.3 % (0.0-4.0); LYMPH # 0.8 K/mm3 (1.5-4.5); LYMPH % 6.6 % (24.0-44.0); MEAN CORPUSCULAR HEMOGLOBIN 25.8 pg (27.0-33.0); MEAN CORPUSCULAR HGB CONC 31.3 g/dl (32.0-36.5); MEAN CORPUSCULAR VOLUME 82.7 fl (80.0-96.0); MONO # 0.8 K/mm3 (0.0-0.8); MONO % 7.8 % (0.0-5.0); NEUTROPHILS # 7.9 K/mm3 (1.8-7.7); NEUTROPHILS % 81.7 % (36.0-66.0); PLATELET COUNT, AUTOMATED 170 k/mm3 (150-450); RED CELL DISTRIBUTION WIDTH 18.4 % (11.5-14.5); WHITE BLOOD COUNT 9.6 K/mm3 (4.0-10.0)
[2016-10-21 07:05] LABS: CALCIUM LEVEL 9.7 MG/DL (8.8-10.2); CREATININE FOR GFR 1.34 MG/DL (0.70-1.30)
[2016-10-21 07:09] LABS: POTASSIUM SERUM 5.1 MEQ/L (3.5-5.1)
[2016-10-21] MEDS: TIOTROPIUM INHALER/CAPSULE (SPIRIVA) INH SCH (07:19)
[2016-10-21] MEDS: SYMBICORT 160/4.5MCG INHALER 6GM INH SCH ×2 (07:20→20:04)
[2016-10-21] MEDS: ALLOPURINOL 300 MG TAB PO SCH (08:21)
[2016-10-21] MEDS: cefTRIAXone SOD 2 GM in D5W MINI-BAG PLUS 50 ML IV SCH (08:21)
[2016-10-21] MEDS: APIXABAN 5 MG TAB (ELIQUIS) PO SCH (08:21)
[2016-10-21] MEDS: OMEPRAZOLE 20 MG CAP PO SCH (08:21)
[2016-10-21] MEDS: SENOKOT S TAB PO SCH ×2 (08:21→20:07)
--- NOTE | 2016-10-21 08:39 | REP ---
Clinical: Aortic aneurysm. Technique: Real time mayo scale ultrasound examination using curved array transducer. Correlation: CT of the abdomen dated 10/17/2016. Findings: Ultrasound examination is essentially nondiagnostic due to extensive interposed bowel gas and body habitus. Visualized portions of the distal aorta measured 3.3 cm maximal diameter while the right common iliac artery measures 1.7 cm maximal diameter and the left common iliac artery measures 1.5 cm maximal diameter. Impression: Severely limited examination due to technical factors as described above. Visualized distal aorta measures 3.3 cm maximal diameter. Consider follow-up using pre and post contrast enhanced CT of the abdomen and pelvis if necessary. Signed by Arash Cruz MD 10/21/2016 08:31 A
--- NOTE | 2016-10-21 11:49 | IPN ---
DATE OF ENCOUNTER: 10/21/2016 SUBJECTIVE: The patient was seen this morning at bedside. No acute overnight events. He was due to have a CT of the chest yesterday but it was reported that he refused to have this done. He is currently still experiencing some gross hematuria. He continues to have a Goins in place. No flank pain, abdominal pain or leg pain. Does continue to have back pain. Has not had a bowel movement yet. He denies any nausea or vomiting, chest pain/pressure, palpitations or shortness of breath. No increased lower extremity weakness. No paresthesias or saddle anesthesia. No fevers or chills. OBJECTIVE: Vital signs: Temperature 96.3, pulse 106, respiratory rate 12, blood pressure 116/64, pulse oximetry 92% on room air. General: The patient is awake and alert, in no acute distress. HEENT: Normocephalic, atraumatic. Extraocular muscles are intact. Pupils are equally round and reactive to light. No scleral icterus. Neck: Supple. No cervical lymphadenopathy. Heart: Normal S1, S2, tachycardia, regular rhythm. I did not appreciate a murmur. Lungs: Clear to auscultation bilaterally. No rales, rhonchi or wheezing. Abdomen: Obese, nontender. Bowel sounds are present. No rebound, guarding or rigidity. Extremities: Positive for bilateral edema. No cyanosis. Positive pedal pulses bilaterally. Skin: Warm and dry. No rashes noted. Neurologic: No focal deficits. Motor and sensation intact. Motor sensory muscle strength is intact. LABORATORY DATA: WBC 9.6, hemoglobin 13.9, hematocrit 44.4, platelet count 170. Sodium 138, potassium 5.1, chloride 102, carbon dioxide 29, anion gap 7, BUN 33, creatinine 1.34, GFR 55, fasting glucose 136, calcium 9.7 ASSESSMENT/PLAN 1. Left hydronephrosis with acute kidney injury and gross hematuria. Discussed with urology today that patient is having gross hematuria for the last [address] days[address] remains in place. He continues on antibiotics for urinary tract infection. Urine culture did not show any growth. Will do continuous bladder irrigations. Will continue to monitor the hematuria while he is on Eliquis 2. Bilateral deep venous thromboses (DVTs). He is currently on Eliquis 10 mg twice daily. He does have previous history of DVT, maybe 10 years ago for which he received an inferior vena cava (IVC) filter. 3. Tachycardia. EKG revealed sinus tachycardia. The plan was to obtain a chest CT yesterday, but apparently patient did not want to have this done. Nonetheless, he is being treated with Eliquis, which would also be the treatment if pulmonary embolism (PE) was found. 4. Back pain. CT revealed severe central canal stenosis of L4-L5. Neurosurgery has been consulted. Pain management has also been consulted. The bilateral DVTs puts him at higher risk if any surgical procedure were to take place. 5. BPH. Continue Flomax 0.4 mg daily. 6. Chronic obstructive pulmonary disease (COPD). Continue Symbicort, Spiriva and DuoNebs as needed. 7. Gastroesophageal reflux disease (GERD). Continue Prilosec daily. 8. History of gout. Continue allopurinol daily. 9. Dyslipidemia. Continue with Lipitor. 10. History of aortic aneurysm. Patient had an aortic ultrasound performed. Exam was limited but the distal aorta was visualized measuring 3.3 cm. This will likely just need continued followup as outpatient. 11. DVT prophylaxis. The patient is on Eliquis. My preceptor for this patient encounter was Jenni Valladares DO. The preceptor was physically present in the building during the encounter and was fully available. As needed, all aspects of the patient interview, examination, medical decision making process, and medical care plan development were reviewed and approved by the preceptor. The preceptor is aware and concurs with the plan as stated in the body of this note and will attest to such by his/her co-signature. JOSEP
[2016-10-21] MEDS: MOM 30ML SUSPENSION UDC PO PRN (12:53)
[2016-10-21 14:00] VITALS: BP 135/71
--- NOTE | 2016-10-21 16:41 | REP ---
MR LUMBAR SPINE WITHOUT CONTRAST: HISTORY: Back pain. COMPARISON: CT 10/20/2016. Decreased signal intensity on T2-weighted images is present in the lumbar intervertebral discs. The discs are decreased in height. These findings are consistent with disc degeneration. A diffuse disc bulge is present at the L1-2 level. There is minimal compression of the thecal sac. The L1 nerves exit the neural foramina without compression. A diffuse disc bulge and small central disc extrusion with associated osteophyte formation are present at the L2-3 level. There is inferior migration of the disc material. There is hypertrophy of the ligamenta flava and posterior articulating facets. These findings produce moderate central canal stenosis. The L2 nerves exit the neural foraminal without compression. A diffuse disc bulge is present at the L3-4 level. There is hypertrophy of the ligamenta flava and posterior articulating facets. These findings produce moderate central canal stenosis. There is compression of the L3 nerves in the neural foramina. A diffuse disc bulge is present at the L4-5 level. There is hypertrophy of the ligamenta flava and posterior articulating facets. There are 3 mm of grade 1 spondylolisthesis of L4 on 5. These findings produce severe central canal stenosis. The L4 nerves exit the neutral foramina without compression. A diffuse disc bulge and small right paracentral disc protrusion are present at the L5-S1 level. The disc protrusion abuts the right S1 nerve. There is no thecal sac compression. There is hypertrophy of the posterior articulating facets. The L5 nerves exit the neural foramina without compression. The conus medullaris is normal in appearance terminating at the level of the T12-L1 intervertebral discs . Increased signal intensity on T2 weighted images is present in the endplates of the L2 through 4 vertebral bodies. This represents degenerative change. There is aneurysmal dilatation of the abdominal aorta measuring 3.8 cm. IMPRESSION: 1. Diffuse disc bulges at the L1-2 level with minimal thecal sac compression. 2. Moderate central canal stenosis at the L2-3 level secondary to disc bulge, disc extrusion, ligamentous, and facet hypertrophy and osteophyte formation. 3. Moderate central canal stenosis at the L3-4 level secondary to disc bulge, ligamentous and facet hypertrophy. There is compression of the L3 nerves in the neural foramina. 4. Severe central canal stenosis at the L4-5 level secondary to disc bulge, ligamentous, and facet hypertrophy and grade 1 spondylolisthesis. 5. Diffuse disc bulge and small right paracentral protrusion at the L5-S1 level. The disc protrusion abuts the right S1 nerve. 6. There is aneurysmal dilatation of the abdominal aorta measuring 3.8 cm. Signed by Vick Barreto MD 10/21/2016 04:39 P
[2016-10-21] MEDS: FINASTERIDE 5 MG TAB PO SCH (20:07)
[2016-10-21] MEDS: TAMSULOSIN 0.4 MG CAP PO SCH (20:07)
[2016-10-21] MEDS: ATORVASTATIN 10 MG TAB PO SCH (20:07)
[2016-10-21] MEDS: OMEGA-3 1050MG CAPSULE PO SCH (20:07)
[2016-10-21 22:00] VITALS: BP 145/85
[2016-10-22 06:00] VITALS: BP 123/83
[2016-10-22 07:04] LABS: BASO % 0.5 % (0.0-1.0); EOS # 0.1 K/mm3 (0.0-0.50); EOS % 0.9 % (0.0-3.0); LARGE UNSTAINED CELL # 0.1 K/mm3 (0.0-0.4); LARGE UNSTAINED CELL % 0.9 % (0.0-4.0); LYMPH # 0.7 K/mm3 (1.5-4.5); LYMPH % 5.5 % (24.0-44.0); MEAN CORPUSCULAR HEMOGLOBIN 26.4 pg (27.0-33.0); MEAN CORPUSCULAR HGB CONC 31.6 g/dl (32.0-36.5); MEAN CORPUSCULAR VOLUME 83.4 fl (80.0-96.0); MONO # 0.8 K/mm3 (0.0-0.8); MONO % 7.3 % (0.0-5.0); NEUTROPHILS # 9.1 K/mm3 (1.8-7.7); NEUTROPHILS % 84.9 % (36.0-66.0); PLATELET COUNT, AUTOMATED 181 k/mm3 (150-450); RED CELL DISTRIBUTION WIDTH 18.4 % (11.5-14.5); WHITE BLOOD COUNT 10.7 K/mm3 (4.0-10.0)
[2016-10-22 07:31] LABS: ANION GAP 6 MEQ/L (8-16); BLOOD UREA NITROGEN 29 MG/DL (7-18); CALCIUM LEVEL 9.8 MG/DL (8.8-10.2); CARBON DIOXIDE LEVEL 31 MEQ/L (21-32); CHLORIDE LEVEL 100 MEQ/L (98-107); CREATININE FOR GFR 1.15 MG/DL (0.70-1.30); GLOMERULAR FILTRATION RATE > 60.0 (>42); GLUCOSE, FASTING 126 MG/DL (83-110); POTASSIUM SERUM 4.9 MEQ/L (3.5-5.1); SODIUM LEVEL 137 MEQ/L (136-145)
[2016-10-22] MEDS: TIOTROPIUM INHALER/CAPSULE (SPIRIVA) INH SCH (08:01)
[2016-10-22] MEDS: SYMBICORT 160/4.5MCG INHALER 6GM INH SCH ×2 (08:02→19:38)
[2016-10-22] MEDS: ALLOPURINOL 300 MG TAB PO SCH (09:00)
[2016-10-22] MEDS: OMEPRAZOLE 20 MG CAP PO SCH (09:19)
[2016-10-22] MEDS: SENOKOT S TAB PO SCH ×2 (09:20→19:59)
[2016-10-22] MEDS: cefTRIAXone SOD 2 GM in D5W MINI-BAG PLUS 50 ML IV SCH (09:21)
[2016-10-22] MEDS: PERCOCET 5MG/325MG TAB PO PRN ×2 (09:21→16:13)
[2016-10-22] MEDS: FINASTERIDE 5 MG TAB PO SCH (09:21)
[2016-10-22] MEDS ORDERED: ISOVUE-370 76% 100ML VIAL (Q9967) As Ordered ONE (12:29)
--- NOTE | 2016-10-22 12:36 | IPN ---
DATE: 10/22/2016 SUBJECTIVE Mr. Villar was seen this morning at bedside. No acute overnight issues. He reports that his back pain is stable while lying in bed. States that it is usually with activity that it aggravates him. He has not had a bowel movement yet, but states that he will have prune juice today with his meal. Denies any nausea or vomiting, abdominal pain. No fevers or chills. No chest pain/pressure, shortness of breath or palpitations. Urine is still dark. OBJECTIVE: Vital Signs: Temperature 97.1, pulse 112, respiratory rate 18, blood pressure 123/83, pulse oximetry 92% on room air. General: The patient is alert and oriented in no acute distress. HEENT: Normocephalic, atraumatic. Extraocular muscles are intact. No scleral icterus. Neck: Supple. No cervical lymphadenopathy. Heart: Normal S1, S2, tachycardiac, regular rhythm. No murmur appreciated. Lungs: Clear to auscultation bilaterally. No rales, rhonchi or wheezing. Abdomen: Obese, nontender. Bowel sounds are present. No rebound, guarding or rigidity. Extremities: Mild lower extremity edema. No cyanosis. Positive pedal pulses bilaterally. Skin: Warm and dry. No rashes noted. Neurologic: No focal deficits. Cranial nerves II-XII are grossly intact. Motor and sensation intact. LABORATORY DATA: WBC 10.7, hemoglobin 13.5, hematocrit 42.5 and platelet count 181. Sodium 137, potassium 4.9, chloride 100, carbon dioxide 31, anion gap 6, BUN 29, creatinine 1.15, GFR greater than 60, fasting glucose 126, calcium 9.8. MICROBIOLOGY: No growth on blood culture after 72 hours. IMAGING STUDIES: The patient had a lumbar spine MRI on 10/21 which revealed diffuse disc bulging at L1-2 with minimal thecal sac compression. Moderate central canal stenosis at L2-3. Moderate central canal stenosis at L3-4 secondary to disc bulging, ligamentous and facet hypertrophy. Compression of the L3 nerve in the neural foramina. Severe central canal stenosis at L4-5 level secondary to disc bulge, hypertrophy and grade 1 spondylolisthesis. Diffuse disc bulge and small right paracentral protrusion at L5-S1. Aneurysmal dilatation of the abdominal aorta measuring 3.8 cm. ASSESSMENT/PLAN: 1. Left hydronephrosis with gross hematuria and acute kidney injury. Given his persistent gross hematuria, urology is recommending discontinuing Eliquis to see if urine will clear up. He continues to have a Goins in place and his urine will be monitored. He has been on ceftriaxone for urinary tract infection. Renal function is back to baseline. Flush Goins as needed for clots. 2. Bilateral deep vein thromboses (DVTs). The patient was receiving Eliquis which has now been discontinued secondary to hematuria. He does have a history of previous DVT maybe 4 or 5 years ago with IVC filter placement. 3. Tachycardia. The patient's EKG revealed sinus tachycardia. CT angio has been ordered to rule out any acute pathology. Eliquis has been discontinued secondary to hematuria. Will rule out PE given his persistent tachycardia. Vitals are stable. 4. Back pain. MRI revealed severe central canal stenosis at L4-5. Awaiting further recommendations from neurosurgery. Pain medication as needed. 5. Benign prostatic hypertrophy (BPH). The patient is on Flomax and Proscar. 6. Gastroesophageal reflux disease (GERD). Continue Prilosec/ 7. Chronic obstructive pulmonary disease (COPD). Continue Symbicort, Spiriva and DuoNebs as needed. 8. Gout. Continue allopurinol/ 9. Dyslipidemia. Continue Lipitor. 10. Aortic aneurysm. Distal aorta was visualized measuring 3.3 cm on aortic ultrasound. Continue to monitor this. 11. DVT prophylaxis. The patient will be placed on thromboembolic deterrent stockings (TEDS) and sequentials. My preceptor for this patient encounter was Dr. Jenni Valladares. The preceptor was physically present in the building during the encounter and was fully available. As needed, all aspects of the patient interview, examination, medical decision making process, and medical care plan development were reviewed and approved by the preceptor. The preceptor is aware and concurs with the plan as stated in the body of this note and will attest to such by his/her cosignature.
--- NOTE | 2016-10-22 13:57 | REP ---
CT of the chest with IV contrast, CT pulmonary angiography: Comparison is the chest CT dated 2012. There are no emboli in the pulmonary trunk or central pulmonary arteries. There are no emboli in the pulmonary lobe or segment branches. There are no acute infiltrates or effusions. There is chronic fibro linear scarring in the medial segment right middle lobe and in the right lower lobe. There are no masses or nodules. There is no mediastinal or hilar adenopathy. There is no axillary adenopathy. The thoracic aorta is unremarkable. Cardiac size is normal. The visualized portions of the liver, gallbladder, pancreas, spleen, adrenals and kidneys are unremarkable. Impression: There are no pulmonary emboli. There are focal zones of fibro linear scarring in the right middle lobe and right lower lobe. Otherwise, essentially negative CT study of the chest. A [place] filter is incidentally noted in the abdominal vena cava. Signed by Rosendo Marcus MD 10/22/2016 01:49 P
[2016-10-22 14:00] VITALS: BP 150/82
[2016-10-22] MEDS ORDERED: SENOKOT S TAB PO PRN (17:00)
[2016-10-22] MEDS ORDERED: MAGNESIUM CITRATE 300 ML BTL PO ONE (17:15)
[2016-10-22] MEDS: OMEGA-3 1050MG CAPSULE PO SCH (19:59)
[2016-10-22] MEDS: ATORVASTATIN 10 MG TAB PO SCH (19:59)
[2016-10-22] MEDS: TAMSULOSIN 0.4 MG CAP PO SCH (19:59)
--- NOTE | 2016-10-22 21:35 | CR ---
DATE OF CONSULTATION: 10/21/2016 I was asked to see this pleasant 76-year-old gentleman for rapid onset of low back and leg pain. Available medical data and pertinent radiological studies were reviewed. Patient is sitting comfortably in his chair. Denies any symptoms at this time, however he states that if he tries to lean forward he will get pain in his low back which tends to radiate towards the upper thighs and when he goes back the pain goes away. He states initially for a day or so the pain would get worse even walking for a distance and now he claims he gets so short of breath he can hardly walk any length of significance and thus he does not know if the pain would start again going down his legs on prolonged standing or ambulation. Patient is not the best of historian and despite leading questions the temporal profile of the illness remains fragmentary. He denies any numbness or tingling in his lower extremities. Denies bladder or bowel sphincter symptoms. He does report occasional neck ache, though without any radiation. Denies any numbness or tingling in his lower extremities. He denies any other symptoms other than issues related to his chronic obstructive pulmonary disease (COPD) and lately recurrent hematuria, amongst others. PAST MEDICAL HISTORY: As noted in the electronic health record (EHR) including recurrent urolithiasis, COPD, pulmonary embolism, deep venous thromboses (DVTs), arterioplasty on his right leg, appendectomy, herniorrhaphy, multiple colonoscopies, abdominal aortic aneurysm in his femoral artery, amongst others. He had an inferior vena cava (IVC) filter placed in 2012. MEDICATIONS: As noted in the EHR, including now Eliquis. SOCIAL HISTORY: He gives more than 45 pack year history of smoking and drinks hard liquor frequently. He is a retired teacher. On examination he was found to be awake and alert, oriented times three, pupils nearly equal and reacting. Extraocular movements are full though there is of course breakdown of visual saccadic pursuits, this along with mildly positive Romberg, mostly in delayed phases, suggestive of vestibular dysfunction and can explain his postural dizziness. Cerebellar examination shows mild degree of dysrhythmia and dysmetria. Tandem gait is not possible. Basal ganglia functions are adequate though on occasions there is a degree of bradykinesia. Examination of the cervical spine reveals mild to moderate paraspinal spasm. 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 There is dysesthesia along C2-C3 on the other side. There is reversal of brachioradialis reflexes, which could be of some concern as it remotely suggests presence of cervical myelopathy. Certainly this could be a physiologic finding for him as well. There is mild right deep tendon reflex (DTR) preponderance. Plantars are equally vocal, there is no clonus. He has evidence of both median and ulnar neuropathies, Tinel's is positive over both cubital and carpal tunnels on either side. Examination of the lumbar spine reveals mild to moderate paraspinal spasm. 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 There is mild tenderness over both sacroiliac joints. Straight leg raising in the foraminal compression tests are negative bilaterally. He has a degree of proximal weakness in both lower extremities, though distally he can support his weight on heels and toes. He has dependent edema in the lower extremities and there is increased sympathetic tone or poverty of microcirculation distally in both lower extremities. I could not palpate any pedal pulses but it could be from his significant distal edema. I would recommend Doppler evaluation of his lower extremities to look for his pulses. Deep tendon reflexes in the lower extremities are merely absent or down to a flicker. He has hip algesia, mostly around L4-S1 distribution on either side with some poverty of proprioception. The above finding suggestive of peripheral neuropathy. His abdomen is protuberant with prominent epigastric veins on the right which he and his claim were not present several days ago. IMPRESSION: 1. Lumbar spondylosis with neurogenic claudication. 2. Cervical spondylosis. 3. Peripheral neuropathy. 4. Mild diffuse FORM CARPENTER dysfunction. PLANS AND RECOMMENDATIONS: I did look at the CT scan of the lumbosacral spine that showed diffuse and extensive degenerative changes involving the distal spaces as well as the posterior elements. Findings are worse at L4-L5 where he also has a degree of subluxation. I would recommend an MRI of the lumbosacral spine to look at epidural venous complex. Various options were discussed with him and his . They both understand that not all his findings can be explained on his clinical and radiological findings and I would recommend not only the above MRI but also EMG/NCD of all extremities. At this time his pain is much better controlled thus I would not recommend any acute neurosurgical intervention though he may consider an evaluation by our pain clinic for pain control until he is on Eliquis or until he can be safely off it for any procedures. He is not a suitable candidate for any acute neurosurgical intervention based on his current clinical status. I will be happy to look at his MRI and make further recommendations. In the interim, I advised him to avoid all activities which generally would aggravate his symptoms. Thank you very much for letting me evaluate this patient. Should you have any questions, please do not hesitate to call. JOSEP
[2016-10-22 22:00] VITALS: BP 136/87
[2016-10-23 06:00] VITALS: BP 155/77
[2016-10-23] MEDS: TIOTROPIUM INHALER/CAPSULE (SPIRIVA) INH SCH (07:11)
[2016-10-23] MEDS: SYMBICORT 160/4.5MCG INHALER 6GM INH SCH ×2 (07:11→19:57)
[2016-10-23 07:32] LABS: MEAN CORPUSCULAR HEMOGLOBIN 26.2 pg (27.0-33.0); MEAN CORPUSCULAR HGB CONC 31.7 g/dl (32.0-36.5); MEAN CORPUSCULAR VOLUME 82.6 fl (80.0-96.0); PLATELET COUNT, AUTOMATED 180 k/mm3 (150-450); RED CELL DISTRIBUTION WIDTH 18.2 % (11.5-14.5)
[2016-10-23 07:38] LABS: BASO % 0.4 % (0.0-1.0); EOS # 0.3 K/mm3 (0.0-0.50); EOS % 2.5 % (0.0-3.0); LARGE UNSTAINED CELL # 0.1 K/mm3 (0.0-0.4); LARGE UNSTAINED CELL % 0.8 % (0.0-4.0); LYMPH # 0.6 K/mm3 (1.5-4.5); LYMPH % 5.8 % (24.0-44.0); MONO # 0.7 K/mm3 (0.0-0.8); MONO % 6.6 % (0.0-5.0); NEUTROPHILS # 8.4 K/mm3 (1.8-7.7); NEUTROPHILS % 83.9 % (36.0-66.0)
[2016-10-23] MEDS ORDERED: FLEET OIL RETENTION ENEMA PR PRN (07:45)
[2016-10-23 07:53] LABS: ANION GAP 6 MEQ/L (8-16); BLOOD UREA NITROGEN 25 MG/DL (7-18); CALCIUM LEVEL 9.8 MG/DL (8.8-10.2); CARBON DIOXIDE LEVEL 31 MEQ/L (21-32); CHLORIDE LEVEL 97 MEQ/L (98-107); CREATININE FOR GFR 1.08 MG/DL (0.70-1.30); GLOMERULAR FILTRATION RATE > 60.0 (>42); GLUCOSE, FASTING 128 MG/DL (83-110); MAGNESIUM LEVEL 2.8 MG/DL (1.8-2.4); SODIUM LEVEL 134 MEQ/L (136-145)
[2016-10-23] MEDS: OMEPRAZOLE 20 MG CAP PO SCH (09:36)
[2016-10-23] MEDS: ALLOPURINOL 300 MG TAB PO SCH (09:36)
[2016-10-23] MEDS: FIBER-CON 625 MG TAB PO SCH ×2 (09:36→20:30)
[2016-10-23] MEDS: FINASTERIDE 5 MG TAB PO SCH (09:37)
[2016-10-23] MEDS: cefTRIAXone SOD 2 GM in D5W MINI-BAG PLUS 50 ML IV SCH (09:37)
[2016-10-23] MEDS: SENOKOT S TAB PO SCH ×2 (09:37→20:30)
[2016-10-23] MEDS: PERCOCET 5MG/325MG TAB PO PRN ×3 (09:37→20:38)
--- NOTE | 2016-10-23 12:20 | IPN ---
DATE OF ENCOUNTER: 10/23/2016 ATTENDING PHYSICIAN: Dr. Jenni Valladares SUBJECTIVE: Mr. Villar was seen this morning at bedside. No acute overnight issues. He was sitting up in bed eating breakfast. Reports that his back pain has improved. Is making progress with physical therapy but not yet cleared. He denies any increased weakness or paresthesias. No saddle anesthesia. No nausea, vomiting or abdominal pain. Urine has cleared up since stopping Eliquis. Urinary Goins will be discontinued this morning. No chest pain/pressure, palpitations, shortness of breath, fevers, chills. OBJECTIVE: Vital signs: Temperature 97.4, pulse 96, respiratory rate 18, blood pressure 155/77, pulse oximetry 91% on room air. General: Patient is awake and alert, in no acute distress. HEENT: Normocephalic, atraumatic. Extraocular muscles are intact. Moist mucosa. Neck: Supple. No cervical lymphadenopathy. No thyromegaly. Heart: Normal S1, S2, regular rate and rhythm. No murmur appreciated. Lungs: Good air movement bilaterally. No rales, rhonchi or wheezing. Abdomen: Obese, nontender. Bowel sounds are present. No rebound, guarding or rigidity. Extremities: Positive for lower extremity edema. No cyanosis. Positive pedal pulses bilaterally. Skin: Warm and dry. No rashes noted. Neurologic: No focal deficits. Cranial nerves II-XII are grossly intact. Motor and sensation intact. LABORATORY DATA: WBC 10.0, hemoglobin 12.7, hematocrit 40.1, platelet count 180. Sodium 134, potassium 5.0, chloride 97, carbon dioxide 31, anion gap 6, BUN 25, creatinine 1.08, GFR greater than 60, fasting glucose 128, calcium 9.8, magnesium 2.8. IMAGING: Patient had a CT angiogram done yesterday, which revealed no pulmonary emboli. There were focal zones of scarring in the right middle lobe and right lower lobe, otherwise negative CT. He does have a [place] filter in the abdominal vena cava. 1. Left hydronephrosis with gross hematuria and history of renal stones. Eliquis has been discontinued and urine has significantly cleared up. Goins catheter will be discontinued today with voiding trial. His ceftriaxone has been discontinued for urinary tract infection. He will be placed on ciprofloxacin for 3 days after removal of Goins catheter. Will need to do urine culture 3 days after completing Cipro. For his history of renal stones, he will need to followup with urology as outpatient. He is deciding on whether to stick with his primary urologist in [place] or to switch over to [place] urologist. Either way he will need to follow up in 1-2 weeks as he does have renal stones that need to be addressed. 2. Bilateral deep venous thromboses (DVTs). Patient was on Eliquis, which was discontinued the evening of 10/21/2016. Hematuria has significantly improved since this has occurred. He does have an inferior vena cava (IVC) filter in place and will likely be discharged without Eliquis until urology followup. 3. Tachycardia. This has significantly improved. CT angio was performed without any acute pathology. Other vitals are stable. 4. Acute back pain. MRI revealed severe central canal stenosis at L4-L5. Patient was evaluated by neurosurgery. At this point in time, no immediate neurosurgical intervention will be done. He will also need EMG studies as outpatient according to recommendations from neurosurgery. He will also need to followup with neurosurgery in 1-2 weeks after discharge for further planning. Most likely he will be off of the Eliquis at that time in case any surgical intervention is needed. However, his back pain has significantly improved. He is working with physical therapy and progressing well. No neurological deficits. 5. Benign prostatic hypertrophy. Patient is on Flomax and Proscar, he should be discharged with both medications. 6. Gastroesophageal reflux disease (GERD). Continue Prilosec. 7. Chronic obstructive pulmonary disease (COPD). Continue Symbicort, Spiriva. He is also on DuoNebs as needed. 8. Dyslipidemia. Continue Lipitor. 9. Gout. Continue allopurinol. 10. Aortic aneurysm. Ultrasound revealed a 3.3 cm aneurysm. This will need to continue to be monitored as outpatient. Maintain good blood pressure control. 11. Deep venous thrombosis (DVT) prophylaxis. Patient is on thromboembolism deterrents (TEDs) and sequentials. DISPOSITION: Discharge pending physical therapy clearance and stabilization of other medical problems. My preceptor for this patient encounter was Jenni Valladares DO. The preceptor was physically present in the building during the encounter and was fully available. As needed, all aspects of the patient interview, examination, medical decision making process, and medical care plan development were reviewed and approved by the preceptor. The preceptor is aware and concurs with the plan as stated in the body of this note and will attest to such by his/her co-signature.
[2016-10-23 14:00] VITALS: BP 150/83
[2016-10-23] MEDS: OMEGA-3 1050MG CAPSULE PO SCH (20:29)
[2016-10-23] MEDS: ATORVASTATIN 10 MG TAB PO SCH (20:29)
[2016-10-23] MEDS: TAMSULOSIN 0.4 MG CAP PO SCH (20:30)
[2016-10-23 22:00] VITALS: BP 140/87
[2016-10-24] MEDS: CIPROFLOXACIN 500 MG TAB PO SCH ×2 (05:50→17:51)
[2016-10-24 06:00] VITALS: BP 112/73
[2016-10-24 06:40] LABS: MEAN CORPUSCULAR HEMOGLOBIN 26.1 pg (27.0-33.0); MEAN CORPUSCULAR HGB CONC 31.9 g/dl (32.0-36.5); MEAN CORPUSCULAR VOLUME 81.8 fl (80.0-96.0); RED CELL DISTRIBUTION WIDTH 18.4 % (11.5-14.5); WHITE BLOOD COUNT 8.7 K/mm3 (4.0-10.0)
[2016-10-24 07:02] LABS: ANION GAP 7 MEQ/L (8-16); BLOOD UREA NITROGEN 24 MG/DL (7-18); CALCIUM LEVEL 9.4 MG/DL (8.8-10.2); CARBON DIOXIDE LEVEL 29 MEQ/L (21-32); CHLORIDE LEVEL 97 MEQ/L (98-107); CREATININE FOR GFR 1.03 MG/DL (0.70-1.30); GLOMERULAR FILTRATION RATE > 60.0 (>42); GLUCOSE, FASTING 116 MG/DL (83-110); POTASSIUM SERUM 4.5 MEQ/L (3.5-5.1); SODIUM LEVEL 133 MEQ/L (136-145)
[2016-10-24] MEDS: TIOTROPIUM INHALER/CAPSULE (SPIRIVA) INH SCH (07:59)
[2016-10-24] MEDS: SYMBICORT 160/4.5MCG INHALER 6GM INH SCH ×2 (08:00→19:59)
[2016-10-24] MEDS: OMEPRAZOLE 20 MG CAP PO SCH (10:38)
[2016-10-24] MEDS: FINASTERIDE 5 MG TAB PO SCH (10:38)
[2016-10-24] MEDS: SENOKOT S TAB PO SCH ×2 (10:38→21:39)
[2016-10-24] MEDS: FIBER-CON 625 MG TAB PO SCH ×2 (10:38→21:39)
[2016-10-24] MEDS: ALLOPURINOL 300 MG TAB PO SCH (10:38)
--- NOTE | 2016-10-24 11:14 | IPN ---
DATE OF ENCOUNTER: 10/24/2016 SUBJECTIVE: The patient was seen this morning at bedside. No acute overnight events. He reports that he is feeling well. He did have a temperature last night of 101.3. No chills. The patient denies any chest pain/pressure, shortness of breath. No nausea, vomiting, abdominal pain. He did have a bowel movement yesterday and again this morning. Back pain is improving. No increased weakness or new neurological deficits. No paresthesias or anesthesia. The patient has been working with physical therapy, he did not work with them yesterday however because he reports that he had been sitting up in bed all day and just did not want to aggravate his back and did not think he would be able to walk. Goins catheter has been removed. His urine is clearing up. Repeat urinalysis is improved. OBJECTIVE: Vital Signs: Temperature 98.8, pulse 121, respiratory rate 13, blood pressure 112/73, pulse oximetry 98% on room air. General: The patient is alert and oriented in no acute distress. HEENT: Normocephalic, atraumatic. Extraocular muscles are intact. Moist mucosa. Neck: Supple. No cervical lymphadenopathy or thyromegaly. Heart: Normal S1, S2, tachycardiac. No murmur appreciated. Lungs: Good air movement bilaterally. No rales, rhonchi or wheezing. Abdomen: Obese, nontender. Bowel sounds are present. No rebound, guarding or rigidity. Extremities: Positive for bilateral lower extremity edema. No cyanosis. Positive pedal pulses bilaterally. Skin: Warm and dry. No rashes noted. Neurologic: No focal deficits. Cranial nerves II-XII are grossly intact. Motor strength and sensation intact. LABORATORY DATA: WBC 8.7, hemoglobin 12.8, hematocrit 40.2, platelet count 221. Sodium 133, potassium 4.5, chloride 97, carbon dioxide 29, anion gap 7, BUN 24, creatinine 1.03, GFR greater than 60, fasting glucose 116, calcium 9.4, C-reactive protein 15. Repeat urinalysis is improved. It shows 2+ blood, trace leukocyte esterase, 8 WBC, 138 RBC. MICROBIOLOGY: Final blood culture was negative. Urine culture negative. ASSESSMENT/PLAN: 1. Left hydronephrosis with gross hematuria, urinary tract infection and history of renal stones. The patient has been switched to ciprofloxacin. Goins catheter has been discontinued and the patient is voiding well. He did have a temperature last night. Repeat urinalysis still shows some blood, but trace leukocyte compared to 1+ leukocyte, and white blood cell is only 8 compared to too numerous to count previously. His urine is clearing up. His Eliquis was stopped because of hematuria. He does have history of renal stones and will need to follow up with urology as outpatient. He has decided to change urologist and see Dr. Davies here in [facility] as opposed to his urologist in [place]. He will need to follow up with urology in 1-2 weeks. Will need urine culture 3 days after completing antibiotics. 2. Bilateral deep vein thromboses (DVTs). Eliquis was discontinued secondary to hematuria on October 21. His urine is clearing up. He does have an IVC filter in place and will be discharged without Eliquis until he follows up with his urologist and primary care provider. 3. Tachycardia. CT angiogram did not reveal any acute pathology. Other vitals are stable. Will continue to monitor this for now. He does have some back pain which can be increasing his heart rate the more he moves. 4. Acute back pain. MRI revealed severe central canal stenosis at L4-L5. He was evaluated by neurosurgery. At this point in time, no immediate neurosurgical intervention will be done. Per recommendations, he will also need outpatient EMG studies. This should be coordinated through his primary care provider to refer to neurology. He will need to follow up with neurosurgery in 1-2 weeks after discharge for further planning. For now, will continue with pain control. Continue working with physical therapy. He has been progressing and will need physical therapy clearance. No neurological deficits. 5. Benign prostatic hypertrophy. The patient is on Flomax and Proscar. 6. Gastroesophageal reflux disease (GERD). Continue Prilosec. 7. Chronic obstructive pulmonary disease (COPD). Continue Symbicort, Spiriva, and DuoNebs as needed. 8. Dyslipidemia. Continue Lipitor. 9. Gout. Continue allopurinol. 10. Aortic aneurysm. Ultrasound revealed a 3.3 cm aneurysm. This will need continued monitoring as outpatient. Blood pressure is stable. 11. Deep vein thrombosis (DVT) prophylaxis. Thromboembolic deterrent stockings (TEDS) and sequentials. DISPOSITION: Discharge pending physical therapy clearance. Hopefully, in the next 24-48 hours. My preceptor for this patient encounter was Dr. Jenni Valladares. The preceptor was physically present in the building during the encounter and was fully available. As needed, all aspects of the patient interview, examination, medical decision making process, and medical care plan development were reviewed and approved by the preceptor. The preceptor is aware and concurs with the plan as stated in the body of this note and will attest to such by his/her cosignature. JOSEP
[2016-10-24 14:00] VITALS: BP 144/76
[2016-10-24] MEDS: TAMSULOSIN 0.4 MG CAP PO SCH (21:39)
[2016-10-24] MEDS: ATORVASTATIN 10 MG TAB PO SCH (21:39)
[2016-10-24] MEDS: OMEGA-3 1050MG CAPSULE PO SCH (21:39)
[2016-10-24 22:00] VITALS: BP 168/84
[2016-10-25] MEDS: CIPROFLOXACIN 500 MG TAB PO SCH ×2 (05:46→17:25)
[2016-10-25 06:00] VITALS: BP 113/75
[2016-10-25 06:21] LABS: MEAN CORPUSCULAR HEMOGLOBIN 25.8 pg (27.0-33.0); MEAN CORPUSCULAR HGB CONC 31.3 g/dl (32.0-36.5); MEAN CORPUSCULAR VOLUME 82.5 fl (80.0-96.0); RED CELL DISTRIBUTION WIDTH 18.2 % (11.5-14.5); WHITE BLOOD COUNT 11.2 K/mm3 (4.0-10.0)
[2016-10-25 06:33] LABS: ANION GAP 6 MEQ/L (8-16); BLOOD UREA NITROGEN 22 MG/DL (7-18); CALCIUM LEVEL 9.4 MG/DL (8.8-10.2); CARBON DIOXIDE LEVEL 30 MEQ/L (21-32); CHLORIDE LEVEL 99 MEQ/L (98-107); CREATININE FOR GFR 1.06 MG/DL (0.70-1.30); GLOMERULAR FILTRATION RATE > 60.0 (>42); GLUCOSE, FASTING 116 MG/DL (83-110); POTASSIUM SERUM 4.7 MEQ/L (3.5-5.1); SODIUM LEVEL 135 MEQ/L (136-145)
[2016-10-25] MEDS: TIOTROPIUM INHALER/CAPSULE (SPIRIVA) INH SCH (08:19)
[2016-10-25] MEDS: SYMBICORT 160/4.5MCG INHALER 6GM INH SCH ×2 (08:19→19:49)
[2016-10-25] MEDS: OMEPRAZOLE 20 MG CAP PO SCH (11:18)
[2016-10-25] MEDS: FINASTERIDE 5 MG TAB PO SCH (11:22)
[2016-10-25] MEDS: FIBER-CON 625 MG TAB PO SCH ×2 (11:22→20:51)
[2016-10-25] MEDS: ALLOPURINOL 300 MG TAB PO SCH (11:23)
[2016-10-25] MEDS: SENOKOT S TAB PO SCH ×2 (11:23→20:50)
--- NOTE | 2016-10-25 12:51 | IPN ---
DATE OF ENCOUNTER: 10/25/2016 SUBJECTIVE: Mr. Villar was seen this morning at bedside. No acute overnight issues. Patient reports that his back pain is improved. It mainly bothers him when he is moving around, such as walking. States that he got really fatigued when ambulating with the nurse and legs felt weaker. He does not have any bowel or bladder complaints. No chest pain/pressure, shortness of breath, palpitations. He has not had a recurrence of fever. No chills or night sweats. No nausea, vomiting, abdominal pain, diarrhea. Vitals are stable. Two bowel movements yesterday. Urine has cleared up. OBJECTIVE: VITAL SIGNS: Temperature 98.5, pulse 105, respiratory rate 20, blood pressure 113/75, pulse ox 94% on room air. GENERAL: The patient is awake and alert in no acute distress. HEENT: Normocephalic, atraumatic. Extraocular muscles are intact. Moist mucosa. NECK: Supple. No cervical lymphadenopathy. No thyromegaly. HEART: Normal S1-S2, tachycardiac. No murmur appreciated. LUNGS: Good air movement bilaterally. No rhonchi, wheezing or rales. ABDOMEN: Obese, nontender. Bowel sounds are present. No rebound, guarding or rigidity. EXTREMITIES: Positive for bilateral lower extremity edema. No cyanosis. Positive pedal pulses bilaterally. SKIN: Warm and dry. No rashes noted. NEUROLOGIC: No focal deficits. Cranial nerves: II through XII are grossly intact. Motor and sensation intact. LABORATORY DATA: WBC 11.2, hemoglobin 12.6, hematocrit 40.2, platelet count 221, sodium 135, potassium 4.7, chloride 99, carbon dioxide 30, anion gap 6, BUN 22, creatinine 1.06, GFR greater than 60, fasting glucose 116, calcium 9.4, C-reactive protein 14.3. ASSESSMENT/PLAN: 1. Left hydronephrosis with hematuria, urinary tract infection and history of renal stones. The patient is currently on ciprofloxacin. Goins catheter was discontinued and the patient is voiding well. Urine is clearing up. Continue to hold off on Eliquis until he is seen by urology and primary care physician. He had decided to see Dr. Davies and an appointment has been made for him upon discharge. 2. Bilateral deep vein thrombosis (DVT). The patient's Eliquis was discontinued secondary to hematuria on October 21. Urine has cleared up. IVC filter is in place and he will be discharged without Eliquis until he follows up with urology and primary care. 3. Fever. The patient has not had recurrence of this in the last 24 hours. His repeat urinalysis did show some blood, trace leukocyte esterase compared to 1+ leukocyte esterase, WBC was down from too numerous to count down to 8. Urine culture is pending. Will continue ciprofloxacin at this time. Blood cultures are pending. He does not give any specific additional complaints. His CRP was also found to be significantly elevated. MALATHI, ANCA and rheumatoid factor have been ordered. 4. Tachycardia. The patient had a CT angiogram which did not reveal any acute pathology. Other vitals are stable. He does have back pain with movement, which could be increasing his heart rate. Will continue to monitor for now. 5. Acute back pain. MRI revealed severe central canal stenosis at L4-L5. He was evaluated by neurosurgery. Recommendations are for outpatient followup and EMG studies. No immediate neurosurgical intervention will be done at this time. A neurosurgery appointment has already been made for him anticipating discharge. Continue with pain control and physical therapy. 6. Benign prostatic hypertrophy. Continue Flomax and Proscar. 7. Gastroesophageal reflux disease (GERD). Continue Prilosec. 8. Chronic obstructive pulmonary disease (COPD). Continue Symbicort, Spiriva and DuoNebs as needed. 9. Gout. Continue allopurinol. 10. Dyslipidemia. Continue Lipitor. 11. Aortic aneurysm. Ultrasound revealed a 3.3 cm aneurysm. This will need to be monitored as outpatient. 12. Deep vein thrombosis (DVT) prophylaxis. Thromboembolic deterrent stockings (TEDS) and sequentials. My preceptor for this patient encounter was Dr. Jenni Valladares. The preceptor was physically present in the building during the encounter and was fully available. As needed, all aspects of the patient interview, examination, medical decision making process, and medical care plan development were reviewed and approved by the preceptor. The preceptor is aware and concurs with the plan as stated in the body of this note and will attest to such by his/her cosignature.
[2016-10-25 14:00] VITALS: BP 160/83
[2016-10-25] MEDS: TAMSULOSIN 0.4 MG CAP PO SCH (20:49)
[2016-10-25] MEDS: OMEGA-3 1050MG CAPSULE PO SCH (20:50)
[2016-10-25] MEDS: ATORVASTATIN 10 MG TAB PO SCH (20:50)
[2016-10-25 22:00] VITALS: BP 134/88
[2016-10-26] MEDS: CIPROFLOXACIN 500 MG TAB PO SCH ×2 (05:53→18:17)
[2016-10-26 06:00] VITALS: BP 162/72
[2016-10-26 06:32] LABS: MEAN CORPUSCULAR HEMOGLOBIN 26.2 pg (27.0-33.0); MEAN CORPUSCULAR HGB CONC 31.3 g/dl (32.0-36.5); MEAN CORPUSCULAR VOLUME 83.6 fl (80.0-96.0); RED CELL DISTRIBUTION WIDTH 18.3 % (11.5-14.5); WHITE BLOOD COUNT 12.9 K/mm3 (4.0-10.0)
[2016-10-26 06:43] LABS: ANION GAP 6 MEQ/L (8-16); BLOOD UREA NITROGEN 21 MG/DL (7-18); CALCIUM LEVEL 9.5 MG/DL (8.8-10.2); CARBON DIOXIDE LEVEL 31 MEQ/L (21-32); CHLORIDE LEVEL 99 MEQ/L (98-107); CREATININE FOR GFR 1.07 MG/DL (0.70-1.30); GLOMERULAR FILTRATION RATE > 60.0 (>42); GLUCOSE, FASTING 112 MG/DL (83-110); POTASSIUM SERUM 4.3 MEQ/L (3.5-5.1); SODIUM LEVEL 136 MEQ/L (136-145)
[2016-10-26] MEDS: SYMBICORT 160/4.5MCG INHALER 6GM INH SCH ×2 (07:35→19:44)
[2016-10-26] MEDS: TIOTROPIUM INHALER/CAPSULE (SPIRIVA) INH SCH (07:35)
[2016-10-26] MEDS: OMEPRAZOLE 20 MG CAP PO SCH (09:09)
[2016-10-26] MEDS: FIBER-CON 625 MG TAB PO SCH ×2 (09:09→21:23)
[2016-10-26] MEDS: FINASTERIDE 5 MG TAB PO SCH (09:09)
[2016-10-26] MEDS: ALLOPURINOL 300 MG TAB PO SCH (09:09)
[2016-10-26] MEDS: SENOKOT S TAB PO SCH ×2 (09:09→21:00)
[2016-10-26] MEDS ORDERED: FINA5TAB2 PO (11:06)
[2016-10-26] MEDS ORDERED: FLOM5CAP PO (11:06)
[2016-10-26] MEDS ORDERED: OXYC1TAB23 PO (11:06)
[2016-10-26 16:00] VITALS: BP 122/78
[2016-10-26] MEDS: ATORVASTATIN 10 MG TAB PO SCH (21:23)
[2016-10-26] MEDS: TAMSULOSIN 0.4 MG CAP PO SCH (21:23)
[2016-10-26] MEDS: OMEGA-3 1050MG CAPSULE PO SCH (21:23)
[2016-10-26 22:00] VITALS: BP 139/76
--- NOTE | 2016-10-26 22:34 | IPN ---
DATE: 10/26/2016 SUBJECTIVE: Patient is seen and examined in the room today. Patient complained about some intermittent sharp sensation and some pain of the feet. Patient also noted to have acute rapid growing blister on the left foot. Denies recurrence of fever. Patient already had one episode of fever on 10/23/2016, temperature of 101.3, since then there is no recurrence. OBJECTIVE: VITAL SIGNS: Temperature 97, pulse 108, respirations 18, blood pressure 162/72, pulse oximetry 93% in room air. GENERAL: No sign of acute distress, alert and oriented times three. HEENT: Normocephalic, atraumatic. Extraocular motors grossly intact. CARDIOVASCULAR: Positive S1, S2, tachycardic. LUNGS: Clear to auscultation bilaterally. No wheezes or rhonchi. ABDOMEN: Obese, soft, nontender, nondistended. Bowel sounds present. EXTREMITIES: Positive bilateral lower extremity edema. There is some purplish discoloration of the right toes and there is a blister on the top of the right foot, estimated dimension of 10 x 5 diameter with a height of approximately 4 cm. NEUROLOGICAL: Still has gross sensation to fine touch, although discolored toes. LABORATORY DATA: WBC 12.9, hemoglobin 12.8, hematocrit 40.8, platelet count 236. Sodium 136, potassium 4.3, chloride 99, carbon dioxide 31, BUN 21, creatinine 1.07, GFR greater than 60, fasting glucose 112, calcium 9.5, C-reactive protein 15.9. ASSESSMENT AND PLAN: 1. Bilateral deep venous thrombosis (DVT). Due to the hematuria from anticoagulation, anticoagulation was discontinued per urology recommendations. Patient has been using compression stockings since the discontinuance of anticoagulation. Due to rapid growing mild ischemia of the toe and growing of the blister on the foot, case was discussed with vascular surgeon, Dr. Tinoco, and we will see if there is any other information we can provide for the patient. Patient has a inferior vena cava (IVC) filter in place. 2. Left hydronephrosis with hematuria with a history of renal stone. Patient finished a course of ciprofloxacin. Repeated urine culture is negative. Patient had a voiding trial. Will continue to hold the patient's Eliquis per urology's recommendations. Patient is scheduled to see Dr. Davies in the outpatient setting and patient already has a scheduled appointment. 3. Fever without any recurrence. Repeated urine cultures and blood cultures have remained negative. Patient has normal white blood cell (WBC) count. Patient finished a course of ciprofloxacin. Will also follow with patient's autoimmune workup, results are pending. 4. Tachycardia. May contribute to patient's acute pain. CT angiogram was performed which showed no clots. 5. Acute back pain. MRI was performed which showed severe central canal stenosis at the L4-L5 region. Patient has been evaluated by urologist. Due to patient's other medical disease processes, no immediate neurosurgery intervention is recommended at this point. Patient has a neurosurgery appointment with Dr. Blackwood. Patient continues with pain control and physical therapy. 6. Benign prostatic hypertrophy. Continue Flomax and Proscar. Per patient, patient has good urinary output without difficulty. 7. Gastroesophageal reflux disease. Continue Prilosec. 8. Chronic obstructive pulmonary disease (COPD). Currently compensated. Continue breathing treatments. 9. Gout. On allopurinol. 10. Dyslipidemia. On Lipitor. 11. Aortic aneurysm measuring 3.3 cm. Continue to monitor outpatient. 12. Deep venous thrombosis (DVT) prophylaxis. Unfortunately patient cannot tolerate bilateral compression stockings. Will try sequential compression of the right arm where patient does not have IV access. Patient could not tolerate anticoagulation due to hematuria.
[2016-10-27 06:00] VITALS: BP 132/82
[2016-10-27 06:24] LABS: MEAN CORPUSCULAR HEMOGLOBIN 26.1 pg (27.0-33.0); MEAN CORPUSCULAR HGB CONC 31.7 g/dl (32.0-36.5); MEAN CORPUSCULAR VOLUME 82.4 fl (80.0-96.0); RED CELL DISTRIBUTION WIDTH 18.5 % (11.5-14.5); WHITE BLOOD COUNT 12.6 K/mm3 (4.0-10.0)
[2016-10-27 06:35] LABS: ANION GAP 9 MEQ/L (8-16); BLOOD UREA NITROGEN 19 MG/DL (7-18); CARBON DIOXIDE LEVEL 27 MEQ/L (21-32); CHLORIDE LEVEL 101 MEQ/L (98-107); CREATININE FOR GFR 0.92 MG/DL (0.70-1.30); GLOMERULAR FILTRATION RATE > 60.0 (>42); GLUCOSE, FASTING 115 MG/DL (83-110); POTASSIUM SERUM 4.2 MEQ/L (3.5-5.1); SODIUM LEVEL 137 MEQ/L (136-145)
[2016-10-27] MEDS: TIOTROPIUM INHALER/CAPSULE (SPIRIVA) INH SCH (07:08)
[2016-10-27] MEDS: SYMBICORT 160/4.5MCG INHALER 6GM INH SCH (07:09)
[2016-10-27] MEDS: FINASTERIDE 5 MG TAB PO SCH (08:33)
[2016-10-27] MEDS: SENOKOT S TAB PO SCH (08:33)
[2016-10-27] MEDS: OMEPRAZOLE 20 MG CAP PO SCH (08:33)
[2016-10-27] MEDS: FIBER-CON 625 MG TAB PO SCH (08:33)
[2016-10-27] MEDS ORDERED: SILVER SULFADIAZINE 1% CR 50 GM JAR TOP SCH (09:00)
[2016-10-27] MEDS: ALLOPURINOL 300 MG TAB PO SCH (09:03)
--- NOTE | 2016-10-27 11:15 | CR ---
DATE OF CONSULTATION: 10/27/2016 CHIEF COMPLAINT: Left foot blister. HISTORY OF PRESENT ILLNESS: The patient is a 76-year-old male with complicated medical history including deep vein thromboses (DVTs), pulmonary embolism (PE), chronic back pain, kidney stones, right lower extremity bypass surgery and chronic obstructive pulmonary disease (COPD). He came into the emergency room on 10/18/2016 for bilateral lower back pain. He was treated for kidney stones with hematuria. Because of his DVTs and PE, he does have a Strunk filter in place and he had to stop his anticoagulation because of his hematuria during this stay. He had increased swelling in bilateral lower extremities and had compression stockings placed. Starting early yesterday, 10/26/2016, he had experienced some swelling to the top of the left foot and was found to have a large blister just proximal to the digits as well as a smaller about 1/2 cm blister just anterior to the ankle. The blister was soft, very fluid and did not appear to be a hematoma or anything infectious; however, because of the size I was asked to evaluate it. This morning, the patient says that he had felt drainage from it throughout the evening. No pain. No difficulty with moving his leg or his toes. He does still have significant swelling to the bilateral lower extremities, but no problems with fevers, numbness, tingling or redness. PAST MEDICAL HISTORY: 1. Diverticular bleeding. 2. Chronic left hydronephrosis with recurring kidney stones. 3. PE. 3. DVT. 4. COPD. 5. Chronic back pain. 6. Glaucoma. 7. Peripheral vascular disease. 8. Retinal detachment. 9. Cataracts. PAST SURGICAL HISTORY: 1. Moreno filter placement. 2. Arterioplasty right leg. 3. Appendectomy. 4. Umbilical hernia repair. 5. Multiple colonoscopies and endoscopies. HOME MEDICATIONS: Please see med record. ALLERGIES: None. SOCIAL HISTORY: Denies drug, alcohol or tobacco abuse. FAMILY HISTORY: Noncontributory. REVIEW OF SYSTEMS: Per positives and negatives as stated in history of present illness (HPI). PHYSICAL EXAMINATION: General: Alert and oriented times three, no acute stress. Vitals: Temperature 98.3, pulse 100, respirations 18, blood pressure 132/82, pulse oximetry 92% in room air. HEENT: Pupils equal round and react to light and accommodation. Heart: S1, S2, regular rate and rhythm. Lungs: Clear to auscultation bilaterally. Abdomen: Soft, nontender and nondistended. Bowel sounds positive. Extremities: Bilateral lower extremity pitting edema. On the left foot just proximal to the digits, there is a 4 x 10 cm, soft, skin colored blister with serous fluid within it. There is also another 1.5 cm blister proximal to this just anterior to the ankle. Both are very soft. No signs of any erythema or infection. The large seroma is actively draining through a pin hole on the lateral side of the foot. The patient does not have any pain with this. LABORATORY DATA: White count 12.6, hemoglobin 12.1, platelets 203. Sodium 137, potassium 4.2, creatinine 0.92. ASSESSMENT/PLAN: The patient is a 76-year-old male with complicated medical history including COPD, DVT, PE, and peripheral vascular disease who presents with kidney stones and hydronephrosis that also resulted in hematuria. He recently had compression stockings placed which caused a blister on the anterior aspect of the left foot. Currently, the blister is intact. The skin is covered. Recommendation for now is to keep it lightly covered until the rest of the fluid drains out and the skin heals. If over the next few days the skin becomes necrotic or if the skin tears off, then he can cover it with burn cream until it heals. I gave the patient my office information. If for some reason he is unsure if it is healing properly of he would like further evaluation as an outpatient, he can call me and we can see him here in the office. At this time, the blister surface is intact. There are no signs of infection, therefore, there was no need to cut off the skin and drain it, just keep it covered and let it heal on its own.
[2016-10-27 14:00] VITALS: BP 117/71
--- NOTE | 2016-10-27 15:55 | DSES ---
DATE OF ADMISSION: 10/18/2016 DATE OF DISCHARGE: 10/27/2017 PRIMARY CARE PROVIDER: Dr. Jose F Kearney. CONSULTANTS: Urology, Dr. Hernandez General Surgery, Dr. Farrar Vascular Surgery, Dr. Watkins Neurosurgery, Dr. Blackwood ADMISSION/DISCHARGE DIAGNOSES: 1. Bilateral DVT. 2. Left hydronephrosis with hematuria with history of renal stone. 3. Severe central canal stenosis at L4 to L5 region. 4. Benign prostatic hypertrophy. 5. Gout. 6. Dyslipidemia. 7. Chronic obstructive pulmonary disease. 8. Aneurysm measuring 3.3 cm. 9. History of diverticular bleed. 10. History of pulmonary embolism (PE) status post IVC filter. 11. Popliteal aneurysm of the right knee. HOSPITALIZATION COURSE: Patient is a 76-year-old male who presented to [facility] on 10/18/2016 for acute back pain. Patient was found to have left hydronephrosis with acute kidney injury. Urologist consulted and patient started on empiric antibiotics of IV Rocephin. When Goins catheter was inserted patient experienced significant gross hematuria. Urology was consulted and hematuria was resolved with conservative management.Lower extremity Doppler was performed on 10/19/2016. Patient was found to have extensive bilateral deep vein thrombosis. Risks and benefits were explained to the patient and patient was started on Eliquis. Patient has IVC filter in place. Patient has recurrence of hematuria while patient is on Eliquis. Urology reconsulted, and patient seen by Dr. Davies who recommended discontinuing the Eliquis completely. Due to persistence of the acute back pain, MRI of the lumbar spine was performed which showed moderate central canal stenosis at the L3-L4 level and there is compression of the L3 nerve. There is a severe central canal stenosis at L4 to L5 level with a compression of L4 nerve. Neurosurgeon, Dr. Blackwood was consulted. Due to patient's significant medical condition, no immediate neurosurgery was recommend, and patient was advised to follow with Dr. Blackwood in the outpatient setting. On October 20, 2016 patient had acute temperature of 101.3 with elevated C reactive protein. Due to concern for acute infection, blood culture and urine culture was obtained. However without any intervention. Patient does not have any recurrence of fever and the cultures all came negative. On October 20, 2016 patient started to develop acute blister of the left foot. Due to the extensive size of the blister, general surgery was consulted. With removal of the compression stocking, patient had a fast resolution of the blister, and no intervention was performed. Due to concern for bilateral extent of deep vein thrombosis and patient could not tolerate anticoagulation and compression stockings, vascular surgeon Dr. Watkins was consulted, however patient was determined not a candidate for thromboelective procedure or treatment. Patient determined stable for discharge on 10/27/2016 with recommendation to follow with urology, Dr. Davies and neurosurgery Dr. Blackwood and primary care provider Dr. Jose F Kearney at a scheduled time. OBJECTIVE: Vital signs: Temperature 98.3, pulse 100,r jolie 18, blood pressure 132/82, pulse ox 92R% on room air. LABORATORY DATA: WBC 12.6, hemoglobin 12.1, hematocrit 32.8, platelet count is 203. Sodium 137, potassium 4.2, chloride 101, carbon dioxide 27, BUN 19, creatinine 0.92. GFR is greater than 60. Fasting glucose 115, calcium 9. IMMUNOLOGICAL TESTING: Rheumatoid factor is negative. MALATHI screening is pending. Atypical ANCA is pending. CNCA and PNCA level is pending. MICROBIOLOGY: Urine culture 10/17 is negative. Blood culture obtained 10/18 and 10/24 all negative. Urine culture obtained on 10/24 negative. IMAGING STUDY: CT of the abdomen and pelvis without contrast on 10/17 showed mild left sided hydronephrosis with several stones in the left renal pelvis measuring up to 5 mm in diameter. There is cholelithiases without evidence of acute cholecystitis. Infrarenal abdominal aortic aneurysm measuring up to 3.4 cm. No obstructive inflammatory bowel changes. Enlarged prostate. Moderate lumbar spondylosis. Lower extremity Doppler on 10/19/2016 showed diffuse bilateral thrombus extending from the bilateral common femoral vein to the bilateral popliteal vein and the trifurcations. CT of the lumbar spine without contrast shows diffuse disc bulging at L1 to L2 level. Moderate central canal stenosis at the L3 to L4 level secondary to disc bulging. There is compression of L3 nerve. Severe central canal stenosis at L4 to L5 level secondary to disc bulge and there is a Grade 1 spondylolisthesis. There is a compression of L4 nerve. Abdominal aortic ultrasound on 10/20/2016 showed severely limited examination. Visualized distal aorta measuring 3.3 cm in maximal diameter. MRI of the lumbar spine without contrast on 10/21/2016 shows milder central canal stenosis at L2-L3 level. Moderate central canal stenosis at L3-L4 level. There is a compression at L3 nerve. Severe central canal stenosis at L4-L5 level and Grade [address] angiogram of the chest 10/22/2016 showed no pulmonary embolism. DISCHARGE MEDICATION: - finasteride 5 mg by mouth every day - Percocet 5/25 1 tablet by mouth three times a day as needed for 5 day supply - Combivent two puff inhalation four times a day as needed for shortness of breath - Allopurinol 300 mg by mouth every day - aspirin 81 mg by mouth at bedtime - Lipitor 10 mg by mouth at bedtime - Lumigan 1 drop both eyes at bedtime - Symbicort 2 puffs inhalation twice a day - calcium polycarbophil (FiberCon) 625 mg by mouth twice a day - magnesium oxide 400 mg by mouth at bedtime - Meloxicam 15 mg by mouth every day - Nasacort spray per nares twice a day - omeprazole 40 mg by mouth every day - Flomax 0.4 mg by mouth at bedtime - Spiriva 1 inhalation every day as needed DISCHARGE INSTRUCTIONS: Discontinue Line. Home activity as tolerated. Low salt diet as tolerated. Patient should follow with primary care provider, Dr. Jose F Kearney in 1-2 weeks. Patient should follow with urology, Dr. Davies within one week. Patient should follow with neurosurgery, Dr. Blackwood at a scheduled time. DISCHARGE TIME: Greater than 30 minutes. DISCHARGE CONDITION: Fair. MTDD
== END 2016-10-27 15:30 | disposition home or self-care (01) | DRG 694 ==
LOC: M ED 20:25 → M ED INP 10-18 00:04 → M MS5PR 10-18 01:41
PROVIDERS: ADMIT General Practice; ATTEND Internal Medicine
DX: N13.30 Unspecified hydronephrosis (principal); I82.413 Acute embolism and thrombosis of femoral vein, bilateral; I82.433 Acute embolism and thrombosis of popliteal vein, bilateral; N17.9 Acute kidney failure, unspecified; R31.0 Gross hematuria; N40.0 Benign prostatic hyperplasia without lower urinary tract symptoms; J44.9 Chronic obstructive pulmonary disease, unspecified; I71.9 Aortic aneurysm of unspecified site, without rupture; H40.9 Unspecified glaucoma; S90.822A Blister (nonthermal), left foot, initial encounter; G62.9 Polyneuropathy, unspecified; M10.9 Gout, unspecified; K21.9 Gastro-esophageal reflux disease without esophagitis; M47.812 Spondylosis without myelopathy or radiculopathy, cervical region; M47.896 Other spondylosis, lumbar region; H26.9 Unspecified cataract; E78.5 Hyperlipidemia, unspecified; M48.06 Spinal stenosis, lumbar region; Z79.82 Long term (current) use of aspirin; Z79.899 Other long term (current) drug therapy; Z87.442 Personal history of urinary calculi; Z86.718 Personal history of other venous thrombosis and embolism; Z86.711 Personal history of pulmonary embolism; Z95.9 Presence of cardiac and vascular implant and graft, unspecified; Z87.891 Personal history of nicotine dependence; Z79.01 Long term (current) use of anticoagulants; X58.XXXA Exposure to other specified factors, initial encounter; Y92.9 Unspecified place or not applicable; Y93.9 Activity, unspecified; Y99.9 Unspecified external cause status

== ENCOUNTER → 2016-10-31 | Outpatient (REF) | payer MEDICARE, OTHER ==
[~2016-10-31] MED LIST changes: +FINA5TAB2 PO; +FISH100049 PO; +GLUC1CAP9 PO; +LOCO0.1C EX; +MAGN1TAB25 PO; +OMEP40CA2 PO; +OXYC1TAB23 PO; +PRIL20CA9 PO
[2016-10-31 18:45] LABS: CALCIUM OXALATE CRYSTALS LARGE
== END ==
LOC: M SMT 12:09
PROVIDERS: ATTEND Nurse Practitioner Women's Health
DX: R31.0 Gross hematuria (principal)
CPT/HCPCS: 81001; 87086; 88108; G0463

== ENCOUNTER → 2016-11-07 | Outpatient (CLI) | payer MEDICARE, OTHER ==
[~2016-11-07] MED LIST changes: +ISOVUE-370 76% 100ML VIAL (Q9967) As Ordered ONE
--- NOTE | 2016-11-07 09:13 | REP ---
CT ABDOMEN AND PELVIS WITHOUT AND WITH IV CONTRAST: Without oral contrast. CT urogram. HISTORY: Gross hematuria. Comparison CT study October 17, 2016. Prior study showed left-sided hydronephrosis and bilateral intrarenal nephrolithiasis. CT contrast dose: 100 mL of Isovue [address] FINDINGS: Digital preliminary operating room technician radiograph demonstrates an unremarkable bowel gas pattern. There are clips in right inguinal soft tissues. The lung bases are essentially clear. There are a few bullae again noted in the lower lobes. The liver and the spleen are normal in size and homogeneous in texture. There is at least one tiny calcified gallstone in the dependent portion the gallbladder. Some opaque material is seen layering in the dependent portion of gallbladder as well. No pancreatic abnormality is observed. No adrenal lesion is seen. There is a cyst in the lower pole left kidney which measures 2.6 cm in diameter unchanged. There are three calculi in the renal pelvis on the left side again noted. Each of these measures approximately 5-6 mm. No hydronephrosis is seen. No intrarenal calculi seen. On the right, there is a tiny intrarenal calculus at mid pole level. No hydronephrosis seen. An inferior vena cava filter is again noted in place. There is atherosclerotic calcification in the abdominal aorta and there is a small somewhat eccentric abdominal aortic aneurysm just below the origin of the renal arteries measuring 3.2 cm in greatest anteroposterior dimension. This is unchanged. No retroperitoneal mass or adenopathy is seen. Delayed postcontrast images show no evidence of filling defect in the collecting system. There is rosas colonic diverticulosis without CT evidence of diverticulitis. Prostate is mildly enlarged. No bladder calculus is seen. IMPRESSION: There are three 5-6 mm calculi in the renal pelvis on the left without hydronephrosis. Tiny intrarenal calculus is seen on the right. A small cyst is noted in the lower pole of the left kidney. Signed by Josr Shaw MD 11/07/2016 09:37 A
== END ==
LOC: M RAD 08:02
PROVIDERS: ATTEND Nurse Practitioner Women's Health
DX: R31.0 Gross hematuria (principal); N20.0 Calculus of kidney; N28.1 Cyst of kidney, acquired
CPT/HCPCS: 74178; Q9967

== ENCOUNTER → 2017-01-05 | Outpatient (CLI) | payer MEDICARE, OTHER ==
[~2017-01-05] MED LIST changes: +FISH13602 PO; -FISH1400 PO; -ISOVUE-370 76% 100ML VIAL (Q9967) As Ordered ONE; +MAGN250T7 PO
--- NOTE | 2017-01-05 12:55 | REP ---
PA and lateral chest: Comparisons are the PA and lateral chest dated 01/25/[address] of 01/27/2013. There is chronic stable parenchymal scarring in the lingular segment of the right upper lobe and in the right lower lobe , unchanged from both prior studies. Remainder the lung addison are clear and unchanged. Cardiac size is normal. The madhu, mediastinum, and bony thorax are unremarkable for patient age, and unchanged. Impression: Chronic stable right middle lobe and right lower lobe scarring. Otherwise, negative PA and lateral chest. Signed by Rosendo Marcus MD 01/05/2017 12:47 P
[2017-01-05 13:10] LABS: INR 0.94
[2017-01-05 13:11] LABS: MEAN CORPUSCULAR HEMOGLOBIN 26.4 pg (27.0-33.0); MEAN CORPUSCULAR VOLUME 85.3 fl (80.0-96.0); RED CELL DISTRIBUTION WIDTH 16.6 % (11.5-14.5); WHITE BLOOD COUNT 7.6 K/mm3 (4.0-10.0)
[2017-01-05 13:43] LABS: ANION GAP 11 MEQ/L (8-16); BLOOD UREA NITROGEN 23 MG/DL (7-18); CALCIUM LEVEL 9.4 MG/DL (8.8-10.2); CARBON DIOXIDE LEVEL 27 MEQ/L (21-32); CHLORIDE LEVEL 105 MEQ/L (98-107); CREATININE FOR GFR 0.95 MG/DL (0.70-1.30); GLOMERULAR FILTRATION RATE > 60.0 (>42); GLUCOSE, FASTING 101 MG/DL (83-110); POTASSIUM SERUM 4.5 MEQ/L (3.5-5.1); SODIUM LEVEL 143 MEQ/L (136-145)
== END ==
LOC: M ADAMS 11:35
PROVIDERS: ATTEND Urology
DX: Z01.818 Encounter for other preprocedural examination (principal); N20.0 Calculus of kidney; N39.0 Urinary tract infection, site not specified

== ENCOUNTER → 2017-01-12 | Outpatient (REF) | payer MEDICARE, OTHER ==
[2017-01-12 16:24] LABS: ALBUMIN 3.8 GM/DL (3.2-5.2); ALBUMIN/GLOBULIN RATIO 1.06 (1.00-1.93); BILIRUBIN,DIRECT 0.1 MG/DL (0.0-0.2); BILIRUBIN,TOTAL 0.5 MG/DL (0.2-1.0); TOTAL PROTEIN 7.4 GM/DL (6.4-8.2)
== END ==
LOC: M SFHCPLAZ 13:52
PROVIDERS: ATTEND Internal Medicine
DX: Z01.818 Encounter for other preprocedural examination (principal); N20.0 Calculus of kidney; E78.00 Pure hypercholesterolemia, unspecified
CPT/HCPCS: 36415; 80061; 80076; 93005; G0463

== ENCOUNTER 2017-01-14 07:54 | Day surgery (SDC) | payer MEDICARE, OTHER ==
[~2017-01-14] VITALS: Ht 165.1 cm; Wt 81.6 kg
[2017-01-14] MEDS ORDERED: LR 1,000 ML IV ONE (08:00)
[2017-01-14] MEDS ORDERED: PROPOFOL 200 MG/20 ML VIAL As Ordered ONE (08:10)
[2017-01-14] MEDS ORDERED: ONDANSETRON 4MG/2ML VIAL (J2405) As Ordered ONE (08:10)
[2017-01-14] MEDS ORDERED: LIDOCAINE 2% INJ 100 MG/5 ML SDV (FOR ANES.) As Ordered ONE (08:10)
[2017-01-14] MEDS ORDERED: MIDAZOLAM INJ 2 MG/2 ML VIAL (J2250) As Ordered ONE (08:11)
[2017-01-14] MEDS ORDERED: fentaNYL 100 MCG/2 ML INJECTION (J3010) As Ordered ONE (08:12)
[2017-01-14] MEDS ORDERED: FUROSEMIDE 100 MG/10 ML VIAL (J1940) As Ordered ONE (08:34)
[2017-01-14] MEDS ORDERED: CONRAY-60 60% 50ML VIAL (Q9961) As Ordered ONE (09:06)
[2017-01-14] MEDS ORDERED: PHENYLephrine HCL 500 MCG/5 ML (100MCG/ML) SYRINGE (J2370) As Ordered ONE (09:54)
[2017-01-14] MEDS ORDERED: MEPERIDINE INJ 25 MG/ML VIAL (J2175) IV PRN (11:30)
[2017-01-14] MEDS ORDERED: LR 1,000 ML IV SCH (11:30)
[2017-01-14] MEDS ORDERED: fentaNYL 100 MCG/2 ML INJECTION (J3010) IV PRN (11:30)
[2017-01-14] MEDS ORDERED: ONDANSETRON 4MG/2ML VIAL (J2405) IV PRN (11:30)
[2017-01-14] MEDS ORDERED: PERCOCET 5MG/325MG TAB PO PRN ×2 (11:30)
[2017-01-14 13:10] VITALS: BP 136/84
--- NOTE | 2017-01-14 13:12 | REP ---
Retrograde pyelogram: A series of five intraoperative fluoroscopic views are performed during placement of a left ureteral stent. The final film demonstrates the proximal and distal pigtails are in satisfactory locations. Fluoroscopic exposure time is 0.18 minutes. Intraoperative fluoroscopic views are performed with last image hold technology. These images require no additional radiation. Signed by Rosendo Marcus MD 01/14/2017 10:48 A
--- NOTE | 2017-01-16 09:41 | RO ---
DATE OF PROCEDURE: 01/14/2017 PREPROCEDURE DIAGNOSIS: Left kidney stones. POSTPROCEDURE DIAGNOSIS: Left kidney stones. PROCEDURE: Cystoscopy, left ureteroscopy with aser lithotripsy with basket extraction of stones, left retrograde pyelogram with intraoperative interpretative of images, left ureteral stent placement. SURGEON: Dr. Herve Hussein DRUG SAFETY SPECIALIST: None. ANESTHESIA: Spinal. OPERATIVE INDICATIONS: This is a 76-year-old male who was found to have three left sided kidney stones around 8 mm in size. It was recommended he be brought to the operating room today for the above listed procedure. DESCRIPTION OF PROCEDURE: The patient was brought to the operating room, where spinal anesthesia was administered. Prophylactic antibiotics were infused. He was then placed in the dorsal lithotomy position and prepped and draped in the usual sterile fashion. A rigid cystoscope was then inserted into the urethral meatus and advanced into the bladder. Once within the bladder, a wire was advanced up the left collecting system. The wire was then utilized to advance the ureteral access sheath up the left collecting system. The stylet was then removed and the wire was secured to the drape to serve as a safety wire. I then went up the left ureteral access sheath with a flexible ureteroscope and in the renal pelvis three kidney stones were seen. The stone was then fragmented into smaller pieces using a 200 micron laser fiber. A lot of these fragments were then removed with the basket. The remainder of the fragments were broken down into smaller pieces with a laser. These pieces should be small enough to pass. At this point, a retrograde pyelogram was performed and was negative for extravasation. The ureteroscope was then removed along with the access sheath. There were no additional stones seen within the ureter. At this point, the wire was utilized to advance a #6-Italian x 22-32 cm JJ ureteral stent up the left collecting system. The wire was then removed, and there were adequate curls of the stent in the left renal pelvis and in the bladder. The bladder was then emptied of all fluid, and this marked the conclusion of the procedure. The patient was then taken out of the dorsal lithotomy position, awakened from anesthesia, and transported to the recovery room in stable condition. ESTIMATED BLOOD LOSS: 0 mL. COMPLICATIONS: None. SPECIMENS: Kidney stones. PLAN: The patient will followup in the clinic in a few weeks with imaging prior to access for residual stone burden. If the stones are gone, we will remove the stent. MTDD
== END 2017-01-14 13:30 | disposition home or self-care (01) ==
LOC: M SDC 07:54
PROVIDERS: ATTEND Urology
DX: N20.0 Calculus of kidney (principal); K57.32 Diverticulitis of large intestine without perforation or abscess without bleeding; K21.9 Gastro-esophageal reflux disease without esophagitis; R06.02 Shortness of breath; J44.9 Chronic obstructive pulmonary disease, unspecified; R05 Cough; E78.00 Pure hypercholesterolemia, unspecified; R06.83 Snoring; I73.9 Peripheral vascular disease, unspecified; M15.9 Polyosteoarthritis, unspecified; Z79.899 Other long term (current) drug therapy; Z79.82 Long term (current) use of aspirin; Z87.891 Personal history of nicotine dependence; Z86.010 Personal history of colon polyps; Z86.718 Personal history of other venous thrombosis and embolism; Z86.711 Personal history of pulmonary embolism; Z96.1 Presence of intraocular lens
CPT/HCPCS: 52356; 74420; 82360; 88300; C1769; C1894; C2617; J0690; J2250; J2370; J2405; J3010; Q9961

== ENCOUNTER → 2017-01-27 | Outpatient (CLI) | payer MEDICARE, OTHER ==
--- NOTE | 2017-01-27 10:41 | REP ---
KUB, ONE VIEW: HISTORY: Kidney stones. A left ureteral stent is present. Previously noted calcifications overlying the left kidney are not seen. Calcifications are present in the right upper quadrant and along the right lateral aspect of the L1 vertebral body. A vena cava filter is present. The intestinal gas pattern is nonspecific. IMPRESSION: A left ureteral stent is present. Previously seen calcifications overlying the left kidney are not seen in the present examination. Signed by Vick Barreto MD 01/27/2017 10:57 A
== END ==
LOC: M SMT 09:53
PROVIDERS: ATTEND Urology
DX: Z96.0 Presence of urogenital implants (principal); Z87.442 Personal history of urinary calculi

== ENCOUNTER → 2017-04-13 | Outpatient (REF) | payer MEDICARE, OTHER ==
[2017-04-13 13:02] LABS: MEAN CORPUSCULAR HEMOGLOBIN 24.1 pg (27.0-33.0); MEAN CORPUSCULAR HGB CONC 29.5 g/dl (32.0-36.5); MEAN CORPUSCULAR VOLUME 81.7 fl (80.0-96.0); PLATELET COUNT, AUTOMATED 160 10^3/uL (150-450); RED CELL DISTRIBUTION WIDTH 19.9 % (11.5-14.5); WHITE BLOOD COUNT 7.4 10^3/uL (4.0-10.0)
[2017-04-13 13:20] LABS: ALBUMIN 3.7 GM/DL (3.2-5.2); ALBUMIN/GLOBULIN RATIO 1.03 (1.00-1.93); ALKALINE PHOSPHATASE 117 U/L (45-117); ALT/SGPT 26 U/L (12-78); ANION GAP 5 MEQ/L (8-16); AST/SGOT 16 U/L (7-37); BILIRUBIN,TOTAL 0.7 MG/DL (0.2-1.0); BLOOD UREA NITROGEN 20 MG/DL (7-18); CALCIUM LEVEL 9.4 MG/DL (8.8-10.2); CARBON DIOXIDE LEVEL 31 MEQ/L (21-32); CHLORIDE LEVEL 105 MEQ/L (98-107); CREATININE FOR GFR 1.06 MG/DL (0.70-1.30); GLOMERULAR FILTRATION RATE > 60.0 (>42); GLUCOSE, FASTING 104 MG/DL (83-110); POTASSIUM SERUM 4.6 MEQ/L (3.5-5.1); SODIUM LEVEL 141 MEQ/L (136-145); TOTAL PROTEIN 7.3 GM/DL (6.4-8.2)
== END ==
LOC: M SFHCADAM 10:06
PROVIDERS: ATTEND Internal Medicine
DX: N20.0 Calculus of kidney (principal); Z86.718 Personal history of other venous thrombosis and embolism

== ENCOUNTER → 2018-01-22 | Outpatient (CLI) | payer MEDICARE, OTHER | LOC: M SMT 10:24 | DX: N20.0 Calculus of kidney (principal); Z98.890 Other specified postprocedural states; Z87.442 Personal history of urinary calculi | CPT/HCPCS: 74018; G0463 ==

== ENCOUNTER → 2018-03-17 | Outpatient (REF) | payer MEDICARE, OTHER ==
[2018-03-17 20:26] LABS: HEMOGLOBIN 14.3 g/dl (13.5-17.5); MEAN CORPUSCULAR HEMOGLOBIN 25.6 pg (27.0-33.0); MEAN CORPUSCULAR HGB CONC 29.2 g/dl (32.0-36.5); MEAN CORPUSCULAR VOLUME 87.8 fl (80.0-96.0); PLATELET COUNT, AUTOMATED 170 10^3/uL (150-450); RED BLOOD COUNT 5.58 10^6/uL (4.30-6.10); WHITE BLOOD COUNT 9.1 10^3/uL (4.0-10.0)
[2018-03-17 20:41] LABS: ALBUMIN 3.6 GM/DL (3.2-5.2); ALBUMIN/GLOBULIN RATIO 0.95 (1.00-1.93); ALKALINE PHOSPHATASE 116 U/L (45-117); ALT/SGPT 24 U/L (12-78); ANION GAP 7 MEQ/L (8-16); AST/SGOT 15 U/L (7-37); BILIRUBIN,TOTAL 0.5 MG/DL (0.2-1.0); BLOOD UREA NITROGEN 33 MG/DL (7-18); CALCIUM LEVEL 8.9 MG/DL (8.8-10.2); CARBON DIOXIDE LEVEL 29 MEQ/L (21-32); CHLORIDE LEVEL 108 MEQ/L (98-107); CREATININE FOR GFR 1.49 MG/DL (0.70-1.30); GLOMERULAR FILTRATION RATE 48.6 (>42); GLUCOSE, FASTING 123 MG/DL (70-100); MAGNESIUM LEVEL 2.3 MG/DL (1.8-2.4); POTASSIUM SERUM 4.5 MEQ/L (3.5-5.1); SODIUM LEVEL 144 MEQ/L (136-145); TOTAL PROTEIN 7.4 GM/DL (6.4-8.2)
== END ==
LOC: M SFHCADAM 14:45
DX: D75.1 Secondary polycythemia (principal); I10 Essential (primary) hypertension
CPT/HCPCS: 83735

== ENCOUNTER → 2018-09-20 | Outpatient (REF) | payer MEDICARE, OTHER ==
[~2018-09-20] MED LIST changes: -/ADVA50050 IN; -/TAMS4CA OR; -/TIOT18INH INH; +ADVA1AER2 IN; -ASPI1TAB PO; +ASPI81TA26 PO; +FLOM0.4C39 OR; +FLOM0.4C39 PO; -FLOM5CAP PO; -MAGN1TAB25 PO; +MAGN1TAB26 PO; +MELO15TA28 PO; -MELO15TA4 PO; -ZYLO300T4 PO; +ZYLO300T6 PO
[2018-09-20 19:57] LABS: ALBUMIN 3.6 GM/DL (3.2-5.2); BILIRUBIN,TOTAL 0.4 MG/DL (0.2-1.0); CHOLESTEROL RISK RATIO 2.953 (<5); CREATININE FOR GFR 1.31 MG/DL (0.70-1.30); GLOMERULAR FILTRATION RATE 56.2 (>42); MAGNESIUM LEVEL 2.3 MG/DL (1.8-2.4); POTASSIUM SERUM 4.4 MEQ/L (3.5-5.1); TOTAL PROTEIN 6.8 GM/DL (6.4-8.2)
[2018-09-20 20:01] LABS: PTH INTACT 90.5 PG/ML (18.5-88.0)
== END ==
LOC: M SFHCPLAZ 10:50
PROVIDERS: ATTEND Internal Medicine
DX: I12.9 Hypertensive chronic kidney disease with stage 1 through stage 4 chronic kidney disease, or unspecified chronic kidney disease (principal); E78.00 Pure hypercholesterolemia, unspecified

== ENCOUNTER → 2018-10-29 | Outpatient (CLI) | payer MEDICARE, OTHER ==
--- NOTE | 2018-10-29 11:53 | REP ---
KUB ONE VIEW: HISTORY: Kidney stones. COMPARISON: 01/22/2018. Calcifications are present in the right upper quadrant and along the right lateral aspect of the L1 vertebral body unchanged compared to the previous study. Calcifications are present overlying the left kidney. The intestinal gas pattern is nonspecific. An IVC filter is present. IMPRESSION: There are calcifications in the right upper quadrant and along the right lateral aspect of the L1 vertebral body and overlying the left kidney that may represent nephrolithiasis. Electronically Signed by Vick Barreto MD 10/29/2018 12:15 P
== END ==
LOC: M SMT 09:57
PROVIDERS: ATTEND Urology
DX: Z87.442 Personal history of urinary calculi (principal)
CPT/HCPCS: 74018; G0463

== ENCOUNTER 2018-12-27 10:33 | Day surgery (SDC) | payer MEDICARE, OTHER ==
[~2018-12-27] VITALS: Ht 165.1 cm; Wt 79.8 kg
[~2018-12-27 10:33] MED LIST changes: +CIDA500T2 PO; +FISH1000 PO; +LASI20TA3 PO; +LIDOCAINE 2% INJ 100 MG/5 ML SDV (FOR ANES.) As Ordered ONE; +LISI10TA4 PO; +NS 1,000 ML IV ONE; +PROPOFOL 200 MG/20 ML VIAL As Ordered ONE
--- NOTE | 2018-12-27 12:13 | ROOR ---
Patient Name: Evan Villar Procedure Date: 12/27/2018 11:30 AM Date of : 1940 Age: 78 Room: [facility] Gender: Male Note Status: Finalized Procedure: Total Colonoscopy to Cecum + Cold Snare Polypectomy + Hemoclips Indications: High risk colon cancer surveillance: Personal history of adenoma with villous component Providers: Horace Osborne MD Referring MD: Jose F Kearney MD Requesting Provider: Medicines: Monitored Anesthesia Care Complications: No immediate complications. Procedure: Pre-Anesthesia Assessment: - The heart rate, respiratory rate, oxygen saturations, blood pressure, adequacy of pulmonary ventilation, and response to care were monitored throughout the procedure. The Colonoscope was introduced through the anus and advanced to the cecum, identified by appendiceal orifice and ileocecal valve. The colonoscopy was performed without difficulty. The patient tolerated the procedure well. The quality of the bowel preparation was good. Findings: The perianal and digital rectal examinations were normal. Non-bleeding internal hemorrhoids were found during retroflexion. The hemorrhoids were small and Grade I (internal hemorrhoids that do not prolapse). Multiple small and large-mouthed diverticula were found in the recto-sigmoid colon, sigmoid colon and descending colon. A large polyp was found in the distal ascending colon. The polyp was sessile. The polyp was removed with a cold snare. Resection and retrieval were complete. To prevent bleeding after the polypectomy, six hemostatic clips were successfully placed (MR conditional). There was no bleeding at the end of the procedure. The exam was otherwise without abnormality on direct and retroflexion views. Impression: - Non-bleeding internal hemorrhoids. - Diverticulosis in the recto-sigmoid colon, in the sigmoid colon and in the descending colon. - One large polyp in the distal ascending colon, removed with a cold snare. Resected and retrieved. Clips (MR conditional) were placed. - The examination was otherwise normal on direct and retroflexion views. - The exam was otherwise normal to the cecum. Recommendation: - Patient has a contact number available for emergencies. The signs and symptoms of potential delayed complications were discussed with the patient. Return to normal activities tomorrow. Written discharge instructions were provided to the patient. - High fiber diet. - Discharge patient to home. - Continue present medications. - Await pathology results. - Telephone GI clinic for pathology results in 1 week. - Return to referring physician. - Repeat colonoscopy for surveillance based on pathology results. - The findings and recommendations were discussed with the patient's family. Horace Osborne MD Horace Osborne MD 12/27/2018 12:13:15 PM Electronically signed by Horace Osborne MD Number of Addenda: 0 Note Initiated On: 12/27/2018 11:30 AM Estimated Blood Loss: Estimated blood loss: none.
[2018-12-27 12:30] VITALS: BP 104/66
== END 2018-12-27 12:41 | disposition home or self-care (01) ==
LOC: M OPP 10:33
PROVIDERS: ATTEND Internal Medicine Gastroenterology
DX: Z12.11 Encounter for screening for malignant neoplasm of colon (principal); Z86.010 Personal history of colon polyps; D37.4 Neoplasm of uncertain behavior of colon; K64.0 First degree hemorrhoids; D12.2 Benign neoplasm of ascending colon; K57.30 Diverticulosis of large intestine without perforation or abscess without bleeding; I25.10 Atherosclerotic heart disease of native coronary artery without angina pectoris; I10 Essential (primary) hypertension; E78.5 Hyperlipidemia, unspecified; I73.9 Peripheral vascular disease, unspecified; K57.32 Diverticulitis of large intestine without perforation or abscess without bleeding; Z87.19 Personal history of other diseases of the digestive system; K21.9 Gastro-esophageal reflux disease without esophagitis; R12 Heartburn; Z86.718 Personal history of other venous thrombosis and embolism; D45 Polycythemia vera; M19.90 Unspecified osteoarthritis, unspecified site; M54.89 Other dorsalgia; J44.9 Chronic obstructive pulmonary disease, unspecified; Z86.711 Personal history of pulmonary embolism; G47.8 Other sleep disorders; R06.02 Shortness of breath; Z87.442 Personal history of urinary calculi; N40.1 Benign prostatic hyperplasia with lower urinary tract symptoms; Z87.891 Personal history of nicotine dependence; Z79.82 Long term (current) use of aspirin; Z79.899 Other long term (current) drug therapy

== ENCOUNTER → 2019-03-30 | Outpatient (REF) | payer MEDICARE, OTHER ==
[~2019-03-30] MED LIST changes: -LIDOCAINE 2% INJ 100 MG/5 ML SDV (FOR ANES.) As Ordered ONE; -NS 1,000 ML IV ONE; +OMEP-358 PO; -OMEP20TA PO; -OMEP40CA2 PO; +OMEP40CA97 PO; -PROPOFOL 200 MG/20 ML VIAL As Ordered ONE
[2019-03-30 13:50] LABS: ALBUMIN 3.4 GM/DL (3.2-5.2); BILIRUBIN,TOTAL 0.6 MG/DL (0.2-1.0); CALCIUM LEVEL 9.5 MG/DL (8.8-10.2); CHOLESTEROL RISK RATIO 2.931 (<5); CREATININE FOR GFR 1.34 MG/DL (0.70-1.30); GLOMERULAR FILTRATION RATE 54.7 (>42); MAGNESIUM LEVEL 2.2 MG/DL (1.8-2.4); POTASSIUM SERUM 4.8 MEQ/L (3.5-5.1); TOTAL PROTEIN 7.1 GM/DL (6.4-8.2)
== END ==
LOC: M SFHCPLAZ 10:25
PROVIDERS: ATTEND Internal Medicine
DX: I12.9 Hypertensive chronic kidney disease with stage 1 through stage 4 chronic kidney disease, or unspecified chronic kidney disease (principal); E78.00 Pure hypercholesterolemia, unspecified; N18.9 Chronic kidney disease, unspecified